=== PATIENT | female | born 1955 | race Caucasian/White ===

== ENCOUNTER → 2017-01-03 | Outpatient (CLI) | payer MEDICARE, OTHER ==
--- NOTE | 2017-01-03 12:52 | XR ---
EXAMINATION TYPE: XR chest 2V DATE OF EXAM: 01/03/2017 HISTORY: J18.9 Pneumonia. REFERENCE: Previous study dated 04/03/2013. FINDINGS: Lungs are mildly overinflated. There is some increased density in the region of the left CP angle. This may represent some atelectasis or early infiltrate. Lungs are otherwise clear. Pleural s paces appear clear. The heart is not enlarged. IMPRESSION: 1. COPD. 2. ATELECTASIS VERSUS EARLY INFILTRATE, LEFT LUNG BASE.
== END | disposition home or self-care (01) ==
LOC: RADXRMAIN 11:42
PROVIDERS: ATTEND Family Medicine
DX: J44.9 Chronic obstructive pulmonary disease, unspecified (principal)
CPT/HCPCS: 71020

== ENCOUNTER 2019-04-26 11:07 | Day surgery (SDC) | payer MEDICARE, OTHER ==
[2019-04-24 10:12] VITALS: BMI 34.9
[~2019-04-26 11:07] MED LIST: LACTATED RINGERS 1,000 ML IV SCH
[2019-04-26] MEDS ORDERED: LACTATED RINGERS 1,000 ML IV ONE (12:05)
[2019-04-26] MEDS ORDERED: LIDOCAINE 1% 20 ML VIAL (10MG/ML) FOR IV START INTRADERMA ONE (12:05)
[2019-04-26 12:09] VITALS: RESP 16; TEMP 98.5
[2019-04-26] MEDS ORDERED: PROPOFOL 10 MG/ML 20 ML VIAL IV ONE (13:20)
--- NOTE | 2019-04-26 13:40 | P.PCN ---
Date of Procedure: 04/26/19 Procedure(s) Performed: BRIEF HISTORY: Patient is a 63-year-old pleasant white female scheduled for an elective colonoscopy as a part of evaluation of prior history of colon polyps. Her last coloscopy was 5 years ago. PROCEDURE PERFORMED: Colonoscopy with snare polypectomy. PREOPERATIVE DIAGNOSIS: History Of colon polyps. IV sedation per Anesthesia. PROCEDURE: After informed consent was obtained, the patient, was brought into the endoscopy unit. IV sedation was administered by Anesthesia under continuous monitoring. Digital rectal examination was normal. Initially the Olympus CF-160 flexible video colonoscope was then inserted in the rectum, and the scope could not be advanced beyond the sigmoid colon because of acute angulation. The scope was removed and a pediatric colonoscope was then introduced into the rectum gradually advanced into the cecum without any difficulty. Careful examination was performed as the scope was gradually being withdrawn. Ileocecal valve and the appendiceal orifice were visualized and appeared normal. Prep was excellent. Mucosa of the cecum, ascending colon, transverse colon, descending colon, sigmoid colon, appeared normal. In the rectosigmoid colon there was a 2 cm pedunculated polyp removed by snare polypectomy. Rectum appeared normal. Retroflexion was performed in the rectum and no lesions were seen. The patient tolerated the procedure well. IMPRESSION: 2 cm pedunculated rectosigmoid polyp status post polypectomy Rest of the colon appeared normal RECOMMENDATIONS: Findings of this examination were discussed with the patient as well as a family. She was advised to follow with the biopsy results. If the biopsy shows an adenoma she can have a repeat colonoscopy in 3 years.
[2019-04-26 14:09] VITALS: BP 114/78; PULSE 78
== END 2019-04-26 14:38 | disposition home or self-care (01) ==
LOC: ORWHC2ENDO 11:07
PROVIDERS: ATTEND Internal Medicine Gastroenterology
DX: Z12.11 Encounter for screening for malignant neoplasm of colon (principal); D12.7 Benign neoplasm of rectosigmoid junction; Z86.010 Personal history of colon polyps; I10 Essential (primary) hypertension; E78.5 Hyperlipidemia, unspecified; G25.81 Restless legs syndrome; H91.91 Unspecified hearing loss, right ear; F41.9 Anxiety disorder, unspecified; F32.9 Major depressive disorder, single episode, unspecified; K21.9 Gastro-esophageal reflux disease without esophagitis; K58.9 Irritable bowel syndrome, unspecified; F17.200 Nicotine dependence, unspecified, uncomplicated; E66.9 Obesity, unspecified; Z68.35 Body mass index [BMI] 35.0-35.9, adult; Z79.899 Other long term (current) drug therapy; Z88.1 Allergy status to other antibiotic agents; Z97.2 Presence of dental prosthetic device (complete) (partial); Z98.51 Tubal ligation status
CPT/HCPCS: 88305; 45385; J2704

== ENCOUNTER → 2021-09-22 | Outpatient (CLI) | payer MEDICARE, OTHER ==
--- NOTE | 2021-09-22 12:30 | CTL ---
EXAMINATION TYPE: CT Low Dose Lung DATE OF EXAM ORDERED: 09/22/2021 HISTORY: . Lung cancer screening CT DLP: [address] CTDI: 2.33 mGy Automated exposure control for dose reduction was used. SCREENING VISIT: COMPARISON: 04/04/2013 TECHNIQUE: Low dose computed tomography scan was performed through the chest at 1 mm thick sections a nd reconstructed images in multiple planes at 1 mm and [address] DIAGNOSTIC QUALITY: Satisfactory FINDINGS: Diffuse emphysematous changes. Areas of subsegmental consolidation most typical of atelecta sis. No focal pneumonia or pleural effusion. No pneumothorax. Heart size is normal. There is coronary artery calcification. Atherosclerotic change of the aorta is demonstrates a maximal dimension of 3.6 cm. No sizable pericardial effusion. Structures of the upper abdomen limited. Hypertrophic changes of the spine with degenerative disc disease. 2 mm nodule image 35 series 3 anterior segment right upper lobe. Within the superior segment right lo wer lobe axial image 43 there is a 3 mm nodule. IMPRESSION: 1. COPD with sub-5 mm nodules too small to characterize, but likely benign 2. Coronary artery calcification CT LUNG RAD AND CT CHEST RECOMMENDATION: Lung-Rad 2 Benign Appearance or Behavior: Continue annual sc reening with LDCT in 12 months.
== END | disposition home or self-care (01) ==
LOC: RADCTMAIN 09:42
PROVIDERS: ATTEND Family Medicine
DX: Z12.2 Encounter for screening for malignant neoplasm of respiratory organs (principal); J44.9 Chronic obstructive pulmonary disease, unspecified; R91.8 Other nonspecific abnormal finding of lung field; I25.10 Atherosclerotic heart disease of native coronary artery without angina pectoris; Z87.891 Personal history of nicotine dependence
CPT/HCPCS: 71271

== ENCOUNTER → 2021-09-22 | Outpatient (CLI) | payer MEDICARE, OTHER ==
--- NOTE | 2021-09-24 13:48 | MM ---
Reason for exam: screening (asymptomatic). Last mammogram was performed 5 years and 10 months ago. History: Patient is postmenopausal. Family history of breast cancer in aunt. Benign US biopsy breast VAD LT of the left breast, November 27, 2015. Benign right mammotome panel of the right breast, February 12, 2013. Physical Findings: A clinical breast exam by your physician is recommended on an annual basis and results should be correlated with mammographic findings. MG 3D Screening Mammo W/Cad Bilateral CC, MLO, and XCCL view(s) were taken. Prior study comparison: November 27, 2015, left breast MG diagnostic mammo LT wo CAD. November 10, 2015, bilateral MG 3d diag mammo w/cad SHAUN. The breast tissue is heterogeneously dense. This may lower the sensitivity of mammography. Previous mammotome biopsy in the right and left breast. Benign regional and diffuse punctate calcifications bilaterally. No significant changes when compared with prior studies. ASSESSMENT: Benign, BI-RAD 2 RECOMMENDATION: Routine screening mammogram of both breasts in 1 year. Patient should continue monthly self breast exams. A negative report should not preclude additional follow up of suspicious palpable abnormalities.
== END | disposition home or self-care (01) ==
LOC: RADMAMWWP 09:16
PROVIDERS: ATTEND Family Medicine
DX: Z12.31 Encounter for screening mammogram for malignant neoplasm of breast (principal); Z80.3 Family history of malignant neoplasm of breast; Z78.0 Asymptomatic menopausal state
CPT/HCPCS: 77063; 77067

== ENCOUNTER → 2022-06-01 | Outpatient (CLI) | payer MEDICARE, OTHER ==
--- NOTE | 2022-06-01 13:46 | MM ---
Reason for Exam: Clinical finding. Last screening mammogram was performed 9 month(s) ago. Indicated Problems: Lump or thickening of the right side for 1 Month(s). Patient History: Menarche at age 14. First Full-Term at age 26. Postmenopausal. 11/27/2015, Benign Core Biopsy on the left side. 02/12/2013, Benign Core Biopsy on the right side. Maternal aunt had breast cancer. Risk Values: Ileana 5 year model risk: 2.8%. NCI Lifetime model risk: 10.3%. Prior Study Comparison: 10/03/2013 Bilateral Screening Mammogram, [facility]. 11/25/2014 Bilateral Diagnostic Mammogram, [facility]. 11/10/2015 Bilateral Diagnostic Mammogram, [facility]. 11/27/2015 Left Diagnostic Mammogram, [facility]. 09/22/2021 Bilateral Screening Mammogram, [facility]. Tissue Density: The breast tissue is heterogeneously dense. This may lower the sensitivity of mammography. Findings: Analyzed By CAD. Persistent and stable distortion subareolar region of right breast. There are biopsy clips in both breasts redemonstrated. This are scattered and loosely grouped tiny round calcifications bilaterally redemonstrated. No suspicious new mass or worrisome group of microcalcifications in either breast. Overall Assessment: Incomplete: need additional imaging evaluation, BI-RAD 0 Management: Diagnostic Breast Ultrasound of the right breast. Targeted ultrasound right breast, new palpable abnormality on background dense tissue. Results were given to the patient verbally at the time of exam. Electronically signed and approved by: Noel Figueroa M.D.
--- NOTE | 2022-06-01 14:14 | USB ---
Reason for Exam: Clinical finding. Patient History: Menarche at age 14. First Full-Term at age 26. Postmenopausal. 11/27/2015, Benign Core Biopsy on the left side. 02/12/2013, Benign Core Biopsy on the right side. Maternal aunt had breast cancer. Risk Values: Ileana 5 year model risk: 2.8%. NCI Lifetime model risk: 10.3%. Technique: Method: Targeted. Prior Study Comparison: 11/10/2015 Bilateral Diagnostic Mammogram, [facility]. 11/27/2015 Left Diagnostic Mammogram, [facility]. 09/22/2021 Bilateral Screening Mammogram, [facility]. Findings: The area of palpable concern of the right breast, the axilla of the right breast and the retroareolar of the right breast were scanned. And targeted ultrasound shows 3 x 5 mm simple appearing thin-walled cyst 3:00 position. Subareolar region shows heterogeneous tissue with prominent ducts. No definitive mass. Overall Assessment: Probably benign, BI-RAD 3 Management: Diagnostic Breast Ultrasound of the right breast. PreCautionary Diagnostic right breast ultrasound follow-up in 3-6 months time. Results were given to the patient verbally at the time of exam. Electronically signed and approved by: Noel Figueroa M.D.
== END | disposition home or self-care (01) ==
LOC: RADMAMWWP 13:00
PROVIDERS: ATTEND Family Medicine
DX: N63.10 Unspecified lump in the right breast, unspecified quadrant (principal); Z78.0 Asymptomatic menopausal state; Z80.3 Family history of malignant neoplasm of breast
CPT/HCPCS: 77066; 76642; G0279; 77062

== ENCOUNTER → 2022-07-15 | Outpatient (CLI) | payer MEDICARE, OTHER ==
[2022-07-15 15:18] VITALS: BP 114/71; PULSE 79; RESP 17; TEMP 98.9
--- NOTE | 2022-07-15 15:39 | P.GSHP ---
History of Present Illness H&P Date: 07/15/22 Chief Complaint: abnormal right breast ultrasound Yin is a 66 year old white female seen in consultation for Dr. Brooks regarding an abnormal right breast ultrasound. She had a bilateral mammogram on 06-01-22 after which a right breast ultrasound was done. This showed a small cyst and repeat in 6 months recommended. The patient feels a nodule in her right breast near her nipple for the past two months. It has not changed in size. She is not complaining of any nipple discharge or skin changes. The mammogram was done secondary to the fact that the patient could feel a change in her breast. She has had a left breast needle biopsy in the past which was benign. This was several years ago. Is not complaining of any recent trauma or infection in the breast. Caffeine: 1 cup coffee/day nicotine: 1PPD/ 50 years chocolate: rare BCP: from 16 until 21 Family History: paternal aunt: of breast cnacer maternal aunt: of breast cancer Hormonal History: meanrche: 14 , breast fed: yes, age at first : 24 menopause: 55 Surgical History: tubaligation Medical History: none Social History: nicotone:1 pack per day for 50 years Alcohol:none drugs: none - Constitutional Constitutional: Reports sweats - EENT Eyes: denies blurred vision, denies pain Ears: deny: decreased hearing, tinnitus Ears, nose, mouth and throat: Denies headache, Denies sore throat - Breasts Breasts: bilateral: as per HPI - Cardiovascular Cardiovascular: Denies chest pain, Denies shortness of breath - Respiratory Respiratory: Denies cough, Denies 7 - Gastrointestinal Comment: IBS Gastrointestinal: Denies abdominal pain, Denies diarrhea, Denies nausea, Denies vomiting - Genitourinary (Female) Genitourinary: Denies dysuria, Denies hematuria - Menstruation Menstruation: Reports postmenopausal - Musculoskeletal Musculoskeletal: Denies myalgias - Integumentary Integumentary: Denies pruritus, Denies rash - Neurological Neurological: Reports numbness - Psychiatric Psychiatric: Reports anxiety, Reports depression - Endocrine Endocrine: Denies fatigue, Denies weight change - Hematologic/Lymphatic Comment: none - Allergic/Immunologic Allergic/Immunologic: Reports as per HPI Past Medical History Past Medical History: Eye Disorder, GERD/Reflux, Hyperlipidemia, Hypertension Additional Past Medical History / Comment(s): RLS. IBS. BILAT CATARACTS BEGINNING. 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 History of Any Multi-Drug Resistant Organisms: None Reported Past Surgical History: Tubal Ligation Additional Past Surgical History / Comment(s): COLONOSCOPIES Past Anesthesia/Blood Transfusion Reactions: No Reported Reaction Past Psychological History: Anxiety, Depression Smoking Status: Current every day smoker Past Alcohol Use History: None Reported Additional Past Alcohol Use History / Comment(s): SMOKES 1/2 PPD SINCE AGE 17 Past Drug Use History: None Reported - Past Family History Mother Family Medical History: No Reported History Medications and Allergies Home Medications Medication Instructions Recorded Confirmed Type Biotin 20,000 mcg PO DAILY 04/24/19 07/15/22 History Citalopram Hydrobromide 40 mg PO DAILY 04/24/19 07/15/22 History [Citalopram HBr] Gabapentin [Neurontin] 300 mg PO TID 04/24/19 07/15/22 History Magnesium Oxide [Mag-Ox] 400 mg PO DAILY 04/24/19 07/15/22 History Melatonin 10 mg PO HS 04/24/19 07/15/22 History Omeprazole 20 mg PO DAILY 04/24/19 07/15/22 History QUEtiapine FUMARATE [SEROquel XR] 150 mg PO DAILY 04/24/19 07/15/22 History Simvastatin [Zocor] 10 mg PO HS 04/24/19 07/15/22 History busPIRone HCL [Buspar] 7.5 mg PO BID 04/24/19 07/15/22 History hydroCHLOROthiazide 25 mg PO DAILY 04/24/19 07/15/22 History rOPINIRole HCL [Requip] 1 mg PO HS 04/24/19 07/15/22 History traZODone HCL 150 mg PO HS 04/24/19 07/15/22 History Allergies Allergy/AdvReac Type Severity Reaction Status Date / Time levofloxacin [From Levaquin] Allergy AGITATED, Verified 07/15/22 15:09 SKIN CRAWLING, COLD SWEATS Surgical - Exam Vital Signs Temp Pulse Resp BP Pulse Ox 98.9 F 79 17 114/71 98 07/15/22 15:15 07/15/22 15:15 07/15/22 15:15 07/15/22 15:15 12/16/22 15:15 - General no distress - Eyes normal ocular movement - ENT no hearing loss - Neck trachea midline - Respiratory normal respiratory effort - Cardiovascular Rhythm: regular Heart Sounds: normal: S1, S2 - Abdomen Abdomen: soft, non tender, no guarding, no rigid, no rebound - Integumentary normal turgor - Neurologic no disoriented, no combative - Musculoskeletal normal gait - Psychiatric oriented to time, oriented to person, oriented to place, speech is normal, memory intact Breast exam: BRA: 40C inspection: Bilateral grade 2 ptosis Palpation: Right breast: Multi-positional exam fibrocystic changes, particularly attention to the area of concern to the patient appears to be dense fibroglandular tissue Right axilla: No adenopathy of concern Left breast: Multi-positional exam fibrocystic changes, no discrete dominant masses or nodules of concern Left axilla: No adenopathy of concern Results Mammogram and ultrasound results personally reviewed Assessment and Plan Assessment: Impression: Fibrocystic breast changes Bilateral mammogram and ultrasound performed on , the ultrasound was of the right breast benign BIRAD 3 Risk evaluation 2.8% 5 years; we have discussed chemoprevention at this time she has declined Plan: Close surveillance of the area of the right breast, at this time there is nothing which would warn interventional biopsy Patient will have a repeat right breast ultrasound in 6 months with physician exam at that time Patient will return sooner if any questions or concerns CC: Dr. Brooks
== END ==
LOC: WWCWWP 14:45
PROVIDERS: ATTEND Surgery
DX: N60.11 Diffuse cystic mastopathy of right breast (principal); N60.12 Diffuse cystic mastopathy of left breast; Z80.3 Family history of malignant neoplasm of breast; K21.9 Gastro-esophageal reflux disease without esophagitis; E78.5 Hyperlipidemia, unspecified; I10 Essential (primary) hypertension; F17.200 Nicotine dependence, unspecified, uncomplicated; Z88.8 Allergy status to other drugs, medicaments and biological substances

== ENCOUNTER → 2023-05-22 | Outpatient (CLI) | payer MEDICARE, OTHER ==
--- NOTE | 2023-05-22 21:57 | US ---
EXAMINATION TYPE: US venous doppler duplex LE LT DATE OF EXAM: 05/22/2023 4:33 PM COMPARISON: NONE CLINICAL INDICATION: Female, 67 years old with history of LLE R60.0 LOCALIZED EDEMA; No hx of DVT. Pa tient does not take blood thinners. Edema x 1.5 months. SIDE PERFORMED: Left TECHNIQUE: The lower extremity deep venous system is examined utilizing real time linear array sonog aurelio with graded compression, doppler sonography and color-flow sonography. VESSELS IMAGED: Common Femoral Vein Deep Femoral Vein Greater Saphenous Vein * Femoral Vein Popliteal Vein Small Saphenous Vein * Proximal Calf Veins (* superficial vessels) Left Leg: No evidence of DVT. Hypoechoic area with hyperechoic center seen within the left groin: 3.1 x 2.3 x 1.1 cm. Findings c ompatible with lymph node. IMPRESSION: No evidence for deep vein thrombosis.
== END | disposition home or self-care (01) ==
LOC: RADUSWWP 16:05
PROVIDERS: ATTEND Family Medicine
DX: R60.0 Localized edema (principal)

== ENCOUNTER 2023-06-21 11:12 | Day surgery (SDC) | payer MEDICARE, OTHER ==
[2023-06-19 15:21] VITALS: BMI 33.3
[~2023-06-21 11:12] MED LIST changes: +LIDOCAINE 1% (10MG/ML) FOR IV START INTRADERMA PRN
[2023-06-21 12:15] VITALS: TEMP 97
[2023-06-21] MEDS ORDERED: LIDOCAINE 1% INJ 10MG/ML (20 ML MDV) ONE (13:02)
[2023-06-21] MEDS ORDERED: PROPOFOL 10 MG/ML 20 ML VIAL IV ONE (13:02)
--- NOTE | 2023-06-21 13:25 | P.PCN ---
Date of Procedure: 06/21/23 Procedure(s) Performed: BRIEF HISTORY: Patient is a 67-year-old pleasant white female scheduled for an elective colonoscopy as a part of evaluation of prior history of colon polyps. Last colonoscopy was poor years ago. PROCEDURE PERFORMED: Colonoscopy. PREOPERATIVE DIAGNOSIS: History of colon polyps. IV sedation per Anesthesia. 67 PROCEDURE: After informed consent was obtained, the patient, was brought into the endoscopy unit. IV sedation was administered by Anesthesia under continuous monitoring. Digital rectal examination was normal. Initially the Olympus CF-160 flexible pediatric video colonoscope was then inserted in the rectum, gradually advanced into the cecum without any difficulty. Careful examination was performed as the scope was gradually being withdrawn. Ileocecal valve and the appendiceal orifice were visualized and appeared normal. Prep was fair.. Mucosa of the cecum, ascending colon, transverse colon, descending colon, sigmoid colon, and rectum appeared normal. Scattered sigmoidal diverticulosis. Retroflexion was performed in the rectum and no lesions were seen. The patient tolerated the procedure well. IMPRESSION: Normal-appearing colon from rectum to cecum with no evidence of colorectal neoplasia Scattered sigmoid diverticulosis . RECOMMENDATIONS: Findings of this examination were discussed with the patient as well as her family. She was advised to have a repeat screening colonoscopy in 10 years..
[2023-06-21 14:16] VITALS: BP 151/66; PULSE 66; RESP 20
== END 2023-06-21 14:10 | disposition home or self-care (01) ==
LOC: ORWHC2ENDO 11:12
PROVIDERS: ATTEND Internal Medicine Gastroenterology
DX: Z12.11 Encounter for screening for malignant neoplasm of colon (principal); K57.30 Diverticulosis of large intestine without perforation or abscess without bleeding; I10 Essential (primary) hypertension; E78.5 Hyperlipidemia, unspecified; J44.9 Chronic obstructive pulmonary disease, unspecified; K21.9 Gastro-esophageal reflux disease without esophagitis; Z79.899 Other long term (current) drug therapy; Z98.890 Other specified postprocedural states; Z86.010 Personal history of colon polyps
CPT/HCPCS: G0105; J2001; J2704; 45378

== ENCOUNTER → 2023-10-09 | Outpatient (CLI) | payer MEDICARE, OTHER ==
[2023-10-09 18:52] LABS: Basophils # (A) 0.09 X 10*3/uL (0.00-0.10); Basophils % (A) 1.1 %; Eosinophils # (A) 0.52 X 10*3/uL (0.04-0.35); Eosinophils % (A) 6.1 %; HCT 45.9 % (37.2-46.3); Lymphocytes # (A) 2.15 X 10*3/uL (0.90-5.00); Lymphocytes % (A) 25.1 %; MCH 29.8 pg (27.0-32.0); MCHC 32.7 g/dL (32.0-37.0); MCV 91.3 FL (80.0-97.0); Mean Platelet Volume 10.3 FL (9.5-12.2); Monocytes # (A) 0.58 X 10*3/uL (0.20-1.00); Monocytes % (A) 6.8 %; NRBC Per 100 WBC 0 X 10*3/uL (0.00-0.01); Neutrophils # (A) 5.17 X 10*3/uL (1.80-7.70); Neutrophils % (A) 60.2 %; Platelet Count 234 X 10*3/uL (140-440); RBC 5.03 X 10*6/uL (4.10-5.20); RDW 13.2 % (11.5-14.5); WBC 8.57 X 10*3/uL (4.50-10.00)
[2023-10-09 19:41] LABS: ALT 57 U/L (8-44); AST 64 U/L (13-35); Albumin 4.4 g/dL (3.8-4.9); Albumin/Globulin Ratio 1.69 Ratio (1.60-3.17); Alkaline Phosphatase 91 U/L (41-126); BUN/Creat Ratio 6.44 Ratio (12.00-20.00); Blood Urea Nitrogen 5.8 mg/dL (9.0-27.0); Chloride 104 mmol/L (96-109); Ferritin 89.8 ng/mL (10.0-291.0); Globulin 2.6 g/dL (1.6-3.3); Glucose 126 mg/dL (70-110); Potassium 3.6 mmol/L (3.5-5.5); Sodium 143 mmol/L (135-145); T4, Free (Free Thyroxine) 0.77 ng/dL (0.80-1.80); Total Bilirubin 0.6 mg/dL (0.3-1.2)
== END | disposition home or self-care (01) ==
LOC: LABWHC1 14:26
PROVIDERS: ATTEND Family Medicine
DX: R53.81 Other malaise (principal)
CPT/HCPCS: 36415; 80053; 82306; 82607; 82728; 84439; 84443; 85025

== ENCOUNTER 2024-03-29 15:35 | Inpatient (IN) | payer MEDICARE, OTHER ==
--- NOTE | 2024-03-29 16:28 | ED ---
Extremity Problem HPI - General Chief complaint: Extremity Problem,Nontraumatic Stated complaint: L leg swelling/redness Time Seen by Provider: 03/29/24 15:51 Source: patient, family, RN notes reviewed Mode of arrival: ambulatory Limitations: no limitations - History of Present Illness Initial comments: 68-year-old female presents the emergency department accompanied by her daughter chief complaint of left lower extremity edema, erythema and pain. Patient states over the past 2-month her left lower extremity has been increasingly edematous. Over the past 2 weeks there has been erythema spreading proximally to the knee. Additionally, over the past 3 days there has been weeping and crusting over the extremity as well. Patient denies overt pain however there is pain with palpation of the leg. Denies recent prolonged travel, surgeries, shortness of breath, difficulty breathing, heart palpitations, dizziness or lightheadedness. Patient denies history of DVT, PE. Denies history of diabetes. Has not been on antibiotics recently - Related Data Home Medications Medication Instructions Recorded Confirmed Omeprazole 20 mg PO DAILY 04/24/19 03/29/24 traZODone HCL 150 mg PO HS 04/24/19 03/29/24 Desvenlafaxine Succinate [Pristiq] 100 mg PO DAILY 06/19/23 03/29/24 ARIPiprazole [Abilify] 15 mg PO DAILY 03/29/24 03/29/24 Albuterol Sulfate [Albuterol 2 puff PO RT-Q4H PRN 03/29/24 03/29/24 Sulfate Hfa] Alendronate Sodium [Fosamax] 70 mg PO FR 03/29/24 03/29/24 Cholecalciferol (Vitamin D3) 50 mcg PO DAILY 03/29/24 03/29/24 [Vitamin D3 (50 Mcg = 2000 Iu)] Cyclobenzaprine [Flexeril] 10 mg PO BID PRN 03/29/24 03/29/24 Gabapentin [Neurontin] 800 mg PO TID 03/29/24 03/29/24 Levothyroxine Sodium [Synthroid] 25 mcg PO DAILY 03/29/24 03/29/24 Melatonin 3 mg PO HS 03/29/24 03/29/24 Multivit-Min/Iron/Folic/Lutein 1 tab PO DAILY 03/29/24 03/29/24 [Centrum Silver Women Tablet] QUEtiapine FUMARATE [SEROquel] 300 mg PO HS 03/29/24 03/29/24 Simvastatin [Zocor] 20 mg PO HS 03/29/24 03/29/24 rOPINIRole HCL [Requip] 2 mg PO HS 03/29/24 03/29/24 Allergies Allergy/AdvReac Type Severity Reaction Status Date / Time levofloxacin [From Levaquin] Allergy AGITATED, Verified 03/29/24 17:21 SKIN CRAWLING, COLD SWEATS Review of Systems ROS Statement: Those systems with pertinent positive or pertinent negative responses have been documented in the HPI. ROS Other: All systems not noted in ROS Statement are negative. Past Medical History Past Medical History: Eye Disorder, GERD/Reflux, Hyperlipidemia, Hypertension Additional Past Medical History / Comment(s): RLS. IBS. BILAT CATARACTS B EGINNING. 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 History of Any Multi-Drug Resistant Organisms: None Reported Past Surgical History: Tubal Ligation Additional Past Surgical History / Comment(s): COLONOSCOPIES Past Anesthesia/Blood Transfusion Reactions: No Reported Reaction Past Psychological History: Anxiety, Depression Smoking Status: Current every day smoker Past Alcohol Use History: None Reported Past Drug Use History: None Reported - Past Family History Mother Family Medical History: No Reported History General Exam Limitations: no limitations General appearance: alert, in no apparent distress Head exam: Present: atraumatic, normocephalic, normal inspection Eye exam: Present: normal appearance, PERRL, EOMI. Absent: scleral icterus, conjunctival injection, periorbital swelling ENT exam: Present: normal exam, mucous membranes moist Neck exam: Present: normal inspection. Absent: tenderness, meningismus, lymphadenopathy Respiratory exam: Present: normal lung sounds bilaterally, wheezes (diffuse). Absent: respiratory distress, rales, rhonchi, stridor Cardiovascular Exam: Present: regular rate, normal rhythm, normal heart sounds. Absent: systolic murmur, diastolic murmur, rubs, gallop, clicks GI/Abdominal exam: Present: soft, normal bowel sounds. Absent: distended, tenderness, guarding, rebound, rigid Left Lower Leg exam: Present: tenderness, swelling, erythema (2+ pitting edema, weeping) Foot/Toe exam: Present: tenderness, swelling, erythema Neurological exam: Present: alert, oriented X3, CN II-XII intact Skin exam: Present: warm, dry, intact, normal color. Absent: rash Course Vital Signs 03/29/24 03/29/24 03/29/24 15:50 17:09 18:41 Temperature 99.3 F 99.3 F 98.5 F Pulse Rate 92 81 78 Respiratory 18 14 12 Rate Blood Pressure 132/75 127/75 132/79 O2 Sat by Pulse 93 L 91 L 93 L Oximetry Medical Decision Making - Medical Decision Making Was pt. sent in by a medical professional or institution (, [facility], [employer], urgent care, hospital, or fdc...) When possible be specific @ -No Did you speak to anyone other than the patient for history (EMS, parent, family, police, friend...)? What history was obtained from this source @ -With the patient's daughter at bedside states the patient has been having worsening erythema and edema of the left extremity over the past 2 weeks and there has been weeping over the past few days and crusting as well. Did you review nursing and triage notes (agree or disagree)? Why? @ -I reviewed and agree with nursing and triage notes Were old charts reviewed (outside hosp., previous admission, EMS record, old EKG, old radiological studies, urgent care reports/EKG's, fdc records)? Report findings @ -No old charts were reviewed Differential Diagnosis (chest pain, altered mental status, abdominal pain women, abdominal pain men, vaginal bleeding, weakness, fever, dyspnea, syncope, headache, dizziness, GI bleed, back pain, seizure, CVA, palpatations, mental health, musculoskeletal)? @ -Cellulitis, venous insufficiency, DVT, peripheral arterial disease, this list is not all inclusive EKG interpreted by me (3pts min.). @ -None X-rays interpreted by me (1pt min.). @ -None done CT interpreted by me (1pt min.). @ -None done U/S interpreted by me (1pt. min.). @ -Duplex ultrasound of the left lower extremity negative for DVT. What testing was considered but not performed or refused? (CT, X-rays, U/S, labs)? Why? @ -None What meds were considered but not given or refused? Why? @ -None Did you discuss the management of the patient with other professionals (professionals i.e. , [employer], [employer], lab, RT, psych nurse, perinatal social worker, audio visual secretary, teacher, credit or loans officer, shoe caser)? Give summary @ -I spoke with nurse practitioner, Echo, with the significant hospitalist team in regard to the patient's presentation. Patient is excepted for admission with IV antibiotics for cellulitis. Was smoking cessation discussed for >3mins.? @ -No Was critical care preformed (if so, how long)? @ -No Were there social determinants of health that impacted care today? How? (Homelessness, low income, unemployed, alcoholism, drug addiction, transportation, low edu. Level, literacy, decrease access to med. care, care home, rehab)? @ -No Was there de-escalation of care discussed even if they declined (Discuss DNR or withdrawal of care, Hospice)? DNR status @ -No What co-morbidities impacted this encounter? (DM, HTN, Smoking, COPD, CAD, Cancer, CVA, ARF, Chemo, Hep., AIDS, mental health diagnosis, sleep apnea, morbid obesity)? @ -None Was patient admitted / discharged? Hospital course, mention meds given and route, prescriptions, significant lab abnormalities, going to OR and other pertinent info. @ -68-year-old female with left lower extremity erythema, edema and pain. On examination patient's left lower extremity is edematous with 2+ pitting edema with erythema spreading proximally to the knee. There is pain to palpation of the left lower extremity however there is no resting pain. Vitals are stable upon arrival. is provided with IV fluids pending results of ultrasound and laboratory results. CBC unremarkable, CMP reveals mildly elevated AST, ALT, elevated CRP at 19.2. Present negative for DVT. Spoke with internal medicine nurse practitioner, patient will be admitted for observation and started on IV antibiotics for her left lower extremity cellulitis. Case discussed with Dr. Adkins Undiagnosed new problem with uncertain prognosis? @ -No Drug Therapy requiring intensive monitoring for toxicity (Heparin, Nitro, Insulin, Cardizem)? @ -No Were any procedures done? @ -No Diagnosis/symptom? @ -Left lower extremity cellulitis Acute, or Chronic, or Acute on Chronic? @ -Acute Uncomplicated (without systemic symptoms) or Complicated (systemic symptoms)? @ -Complicated Side effects of treatment? @ -No Exacerbation, Progression, or Severe Exacerbation? @ -No Poses a threat to life or bodily function? How? (Chest pain, USA, MD, pneumonia, PE, COPD, DKA, ARF, appy, cholecystitis, CVA, Diverticulitis, Homicidal, Suicidal, threat to staff... and all critical care pts) @ -No - Lab Data Result diagrams: 03/29/24 17:24 03/29/24 17:24 Lab Results 03/29/24 03/29/24 03/29/24 Range/Units 17:24 17:24 17:24 WBC 11.2 H (3.8-10.6) k/uL RBC 4.83 (3.80-5.40) m/uL Hgb 14.8 (11.4-16.0) gm/dL Hct 43.5 (34.0-46.0) % MCV 90.2 (80.0-100.0) fL MCH 30.7 (25.0-35.0) pg MCHC 34.0 (31.0-37.0) g/dL RDW 13.7 (11.5-15.5) % Plt Count 189 (150-450) k/uL MPV 7.9 Neutrophils % 77 % Lymphocytes % 15 % Monocytes % 5 % Eosinophils % 1 % Basophils % 0 % Neutrophils # 8.6 H (1.3-7.7) k/uL Lymphocytes # 1.7 (1.0-4.8) k/uL Monocytes # 0.5 (0-1.0) k/uL Eosinophils # 0.1 (0-0.7) k/uL Basophils # 0.1 (0-0.2) k/uL Sodium 139 (137-145) mmol/L Potassium 3.4 L (3.5-5.1) mmol/L Chloride 106 (98-107) mmol/L Carbon Dioxide 25 (22-30) mmol/L Anion Gap 8 mmol/L BUN 14 (7-17) mg/dL Creatinine 0.89 (0.52-1.04) mg/dL Est GFR (CKD-EPI)AfAm 78 (>60 ml/min/1.73 sqM) Est GFR (CKD-EPI)NonAf 67 (>60 ml/min/1.73 sqM) Glucose 82 (74-99) mg/dL Plasma Lactic Acid Kris 1.5 (0.7-2.0) mmol/L Calcium 8.5 (8.4-10.2) mg/dL Magnesium 2.1 (1.6-2.3) mg/dL Total Bilirubin 1.9 H (0.2-1.3) mg/dL AST 77 H (14-36) U/L ALT 44 H (4-34) U/L Alkaline Phosphatase 77 (38-126) U/L C-Reactive Protein 19.2 H (<1.0) mg/dL Total Protein 6.6 (6.3-8.2) g/dL Albumin 3.7 (3.5-5.0) g/dL Disposition Clinical Impression: Cellulitis Disposition: ADMITTED IP TO THIS [facility] Condition: Poor Is patient prescribed a controlled substance at d/c from ED?: No Referrals: Karan Brooks DO [Primary Care Provider] - 1-2 days Decision to Admit Reason: Admit from EC Decision Date: 03/29/24 Decision Time: 19:10
[2024-03-29] MEDS: SODIUM CHLORIDE 0.9% 1,000 ML IV STA (17:32)
[2024-03-29 17:40] LABS: Basophils # (A) 0.1 k/uL (0-0.2); Basophils % (A) 0 %; Eosinophils # (A) 0.1 k/uL (0-0.7); Eosinophils % (A) 1 %; HCT 43.5 % (34.0-46.0); HGB 14.8 gm/dL (11.4-16.0); Lymphocytes # (A) 1.7 k/uL (1.0-4.8); Lymphocytes % (A) 15 %; MCH 30.7 pg (25.0-35.0); MCV 90.2 fL (80.0-100.0); Mean Platelet Volume 7.9; Monocytes # (A) 0.5 k/uL (0-1.0); Monocytes % (A) 5 %; Neutrophils # (A) 8.6 k/uL (1.3-7.7); Neutrophils % (A) 77 %; Platelet Count 189 k/uL (150-450); RBC 4.83 m/uL (3.80-5.40); RDW 13.7 % (11.5-15.5); WBC 11.2 k/uL (3.8-10.6)
[2024-03-29 17:54] LABS: ALT 44 U/L (4-34); AST 77 U/L (14-36); African American GFR (CKD) 78 (>60 ml/min/1.73 sqM); Albumin 3.7 g/dL (3.5-5.0); Alkaline Phosphatase 77 U/L (38-126); Anion Gap 8 mmol/L; Blood Urea Nitrogen 14 mg/dL (7-17); Calcium 8.5 mg/dL (8.4-10.2); Carbon Dioxide 25 mmol/L (22-30); Chloride 106 mmol/L (98-107); Glucose 82 mg/dL (74-99); Magnesium 2.1 mg/dL (1.6-2.3); Non-African American GFR(CKD) 67 (>60 ml/min/1.73 sqM); Potassium 3.4 mmol/L (3.5-5.1); Sodium 139 mmol/L (137-145); Total Bilirubin 1.9 mg/dL (0.2-1.3); Total Protein 6.6 g/dL (6.3-8.2)
[2024-03-29 18:13] LABS: C Reactive Protein 19.2 mg/dL (<1.0)
--- NOTE | 2024-03-29 18:43 | US ---
EXAMINATION TYPE: US venous doppler duplex LE LT DATE OF EXAM: 03/29/2024 6:03 PM COMPARISON: US CLINICAL INDICATION: Female, 68 years old with history of edema, erythema, pain; Redness left leg, no known prior DVT SIDE PERFORMED: Left TECHNIQUE: The lower extremity deep venous system is examined utilizing real time linear array sonog aurelio with graded compression, doppler sonography and color-flow sonography. VESSELS IMAGED: Common Femoral Vein Deep Femoral Vein Greater Saphenous Vein * Femoral Vein Popliteal Vein Small Saphenous Vein * Proximal Calf Veins (* superficial vessels) Left Leg: Negative for DVT IMPRESSION: Grayscale, color doppler, spectral doppler imaging performed of the deep veins of the lo wer extremities. There is normal flow, compressibility, vascular waveforms.
[2024-03-29] MEDS ORDERED: NALOXONE 0.4 MG/ML 1 ML VIAL IV PRN (19:10)
[2024-03-29] MEDS ORDERED: CYCLOBENZAPRINE 10 MG TAB PO PRN (19:32)
[2024-03-29] MEDS: ATORVASTATIN 10 MG TAB PO SCH (20:30)
[2024-03-29] MEDS: traZODone HCL 100 MG TAB PO SCH (20:30)
[2024-03-29] MEDS: SODIUM CHLORIDE 0.9% 1,000 ML IV SCH (20:30)
[2024-03-29] MEDS: MELATONIN 3 MG TABLET PO SCH (20:31)
[2024-03-29] MEDS: QUEtiapine 200 MG TAB PO SCH (20:31)
[2024-03-29] MEDS: GABAPENTIN 400 MG CAP PO SCH (21:56)
[2024-03-29] MEDS: NON FORMULARY DRUG (Alendronate Sodium [Fosamax] 70 MG Tablet) PO SCH (21:57)
[2024-03-29] MEDS: ALBUTEROL HFA INHALER INHALATION PRN (22:04)
[2024-03-30] MEDS: CLINDAMYCIN 600 MG/50 ML-D5W 600 MG in DEXTROSE/WATER 1 50ML.BAG IVPB SCH (00:45)
[2024-03-30] MEDS: PANTOPRAZOLE 40 MG TABLET PO SCH (08:33)
[2024-03-30] MEDS: ARIPiprazole 15 MG TAB PO SCH (08:33)
[2024-03-30] MEDS: LEVOTHYROXINE 25 MCG TAB PO SCH (08:33)
[2024-03-30] MEDS: CHOLECALCIFEROL 25 MCG (1000 IU) TABLET PO SCH (08:33)
[2024-03-30] MEDS: DESVENLAFAXINE SUCCINATE 50 MG TAB.ER.24H PO SCH (08:33)
[2024-03-30] MEDS: MULTIVITAMINS, THERA 1 EACH TAB PO SCH (08:33)
[2024-03-30 09:48] LABS: Basophils # (A) 0.05 X 10*3/uL (0.00-0.10); Basophils % (A) 0.6 %; Eosinophils # (A) 0.18 X 10*3/uL (0.04-0.35); Eosinophils % (A) 2.1 %; HCT 40.6 % (37.2-46.3); Lymphocytes # (A) 1.77 X 10*3/uL (0.90-5.00); Lymphocytes % (A) 20.7 %; MCH 30.7 pg (27.0-32.0); Mean Platelet Volume 10.8 FL (9.5-12.2); Monocytes # (A) 0.67 X 10*3/uL (0.20-1.00); Monocytes % (A) 7.8 %; NRBC Per 100 WBC 0 X 10*3/uL (0.00-0.01); Neutrophils # (A) 5.82 X 10*3/uL (1.80-7.70); Neutrophils % (A) 68.1 %; Platelet Count 171 X 10*3/uL (140-440); RBC 4.23 X 10*6/uL (4.10-5.20); RDW 14.3 % (11.5-14.5); WBC 8.55 X 10*3/uL (4.50-10.00)
[2024-03-30 10:05] LABS: BUN/Creat Ratio 12.27 Ratio (12.00-20.00); Blood Urea Nitrogen 13.5 mg/dL (9.0-27.0); Chloride 108 mmol/L (96-109); Glucose 103 mg/dL (70-110); Potassium 4.2 mmol/L (3.5-5.5); Sodium 144 mmol/L (135-145)
[2024-03-30 10:06] LABS: ALT 37 U/L (8-44); AST 57 U/L (13-35); Albumin 3.5 g/dL (3.8-4.9); Albumin/Globulin Ratio 1.67 Ratio (1.60-3.17); Alkaline Phosphatase 68 U/L (41-126); Calcium 7.8 mg/dL (8.7-10.3); Carbon Dioxide 25.5 mmol/L (21.6-31.8); Globulin 2.1 g/dL (1.6-3.3); Total Protein 5.6 g/dL (6.2-8.2)
--- NOTE | 2024-03-30 17:07 | P.HPIM ---
History of Present Illness H&P Date: 03/30/24 History of present illness: 68-year-old female with past medical history significant for hypertension, hyperlipidemia, GERD who presented to ER with a complaint of left lower extremity pain, swelling and redness. Patient stated that she has chronic swelling in the lower lower extremities, patient started to note status worsening redness, swelling, pain and tenderness in the left lower extremity ab out 1 week ago when patient noticed a blister with weeping. Patient also reported fever and chills at home. Patient also reported altered mental status for 2 days per daughter. In the ED patient was afebrile, heart rate 90, respiratory rate 18, blood pressure 117/73, saturating 94% on 2 L. Labs: WBCs 11.2, now down to 8.55, hemoglobin 13.0, platelets 171. BMP unremarkable. Mildly elevated ALT and AST. Ultrasound venousnormal. REVIEW OF SYSTEMS: CONSTITUTIONAL: No fever, no malaise, no fatigue. HEENT: No recent visual problems or hearing problems. Denied any sore throat. CARDIOVASCULAR: No chest pain, orthopnea, PND, no palpitations, no syncope. PULMONARY: No shortness of breath, no cough, no hemoptysis. GASTROINTESTINAL: No diarrhea, no nausea, no vomiting, no abdominal pain. NEUROLOGICAL: No headaches, no weakness, no numbness. HEMATOLOGICAL: Denies any bleeding or petechiae. GENITOURINARY: Denies any burning micturition, frequency, or urgency. MUSCULOSKELETAL/RHEUMATOLOGICAL: Denies any joint pain, swelling, or any muscle pain. ENDOCRINE: Denies any polyuria or polydipsia. The rest of the 14-point review of systems is negative. PHYSICAL EXAMINATION: GENERAL: The patient is A&O x3, NAD HEENT: EOMI, Sclerae anicteric, Moist Mucous membranes Neck: Supple, Non tender, No JVD PULMONARY: Equal breath souds B/L, No wheezing, No crackles. CARDIOVASCULAR: S1, S2 present. No murmurs, rubs, or gallops. ABDOMEN: Soft, nontender, nondistended, normoactive bowel sounds. No guarding or rebound tenderness. MUSCULOSKELETAL: Bilateral lower extremity edema, worse on the left lower extremity. Left lower extremity, tenderness, edema, warmth. EXTREMITIES: No cyanosis, clubbing, or pedal edema. NEUROLOGICAL: CN 2-12 grossly intact. No FND Assessment and plan: Sepsis: Left lower extremity cellulitis: Presented with worsening lower extremity swelling, edema, redness, pain and tenderness Blood cultures IV fluids Vancomycin and Rocephin Infectious disease consult DVT prophylaxis Subcutaneous Lovenox Monitor vital signs and labs Continue telemetry monitoring Labs and medication were reviewed. Continue same treatment. Resume home medication. Further recommendations as per clinical course of the patient Dictation was produced using [employer] dictation software. please excuse any grammatical, word or spelling errors. Past Medical History Past Medical History: Eye Disorder, GERD/Reflux, Hyperlipidemia, Hypertension Additional Past Medical History / Comment(s): RLS. IBS. BILAT CATARACTS BEGINNING. 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 History of Any Multi-Drug Resistant Organisms: None Reported Past Surgical History: Tubal Ligation Additional Past Surgical History / Comment(s): COLONOSCOPIES Past Anesthesia/Blood Transfusion Reactions: No Reported Reaction Past Psychological History: Anxiety, Depression Smoking Status: Current every day smoker Past Alcohol Use History: None Reported Additional Past Alcohol Use History / Comment(s): SMOKES 1/2 PPD SINCE AGE 17 Past Drug Use History: None Reported - Past Family History Mother Family Medical History: No Reported History Medications and Allergies Home Medications Medication Instructions Recorded Confirmed Type Omeprazole 20 mg PO DAILY 04/24/19 03/29/24 History traZODone HCL 150 mg PO HS 04/24/19 03/29/24 History Desvenlafaxine Succinate [Pristiq] 100 mg PO DAILY 06/19/23 03/29/24 History ARIPiprazole [Abilify] 15 mg PO DAILY 03/29/24 03/29/24 History Albuterol Sulfate [Albuterol 2 puff PO RT-Q4H PRN 03/29/24 03/29/24 History Sulfate Hfa] Alendronate Sodium [Fosamax] 70 mg PO FR 03/29/24 03/29/24 History Cholecalciferol (Vitamin D3) 50 mcg PO DAILY 03/29/24 03/29/24 History [Vitamin D3 (50 Mcg = 2000 Iu)] Cyclobenzaprine [Flexeril] 10 mg PO BID PRN 03/29/24 03/29/24 History Gabapentin [Neurontin] 800 mg PO TID 03/29/24 03/29/24 History Levothyroxine Sodium [Synthroid] 25 mcg PO DAILY 03/29/24 03/29/24 History Melatonin 3 mg PO HS 03/29/24 03/29/24 History Multivit-Min/Iron/Folic/Lutein 1 tab PO DAILY 03/29/24 03/29/24 History [Centrum Silver Women Tablet] QUEtiapine FUMARATE [SEROquel] 300 mg PO HS 03/29/24 03/29/24 History Simvastatin [Zocor] 20 mg PO HS 03/29/24 03/29/24 History rOPINIRole HCL [Requip] 2 mg PO HS 03/29/24 03/29/24 History Allergies Allergy/AdvReac Type Severity Reaction Status Date / Time levofloxacin [From Levaquin] Allergy AGITATED, Verified 03/29/24 17:21 SKIN CRAWLING, COLD SWEATS Physical Exam Vitals: Vital Signs Temp Pulse Pulse Resp BP BP Pulse Ox 03/30/24 14:53 99.0 F 91 18 125/73 94 L 03/30/24 07:00 98.1 F 85 17 144/63 91 L 03/30/24 02:05 98.2 F 90 18 117/73 93 L 03/30/24 02:00 90 03/29/24 21:56 106 H 03/29/24 21:51 98.8 F 106 H 20 123/75 93 L 03/29/24 20:48 97.1 F L 81 18 138/64 90 L 03/29/24 18:41 98.5 F 78 12 132/79 93 L 03/29/24 17:09 99.3 F 81 14 127/75 91 L Intake and Output 03/30/24 03/30/24 03/30/24 06:59 14:59 22:59 Intake Total 600 Balance 600 Intake: Intake, IV Titration 600 Amount Sodium Chloride 0.9% 1, 600 000 ml @ 75 mls/hr IV . [id number] [facility] Rx#:[id number] Other: # Voids 1 Results CBC & Chem 7: 03/30/24 04:24 03/30/24 04:24 Labs: Abnormal Lab Results - Last 24 Hours (Table) 03/29/24 03/29/24 03/30/24 Range/Units 17:24 17:24 04:24 WBC 11.2 H (3.8-10.6) k/uL Immature Gran # 0.06 H (0.00-0.04) X 10*3/uL Neutrophils # 8.6 H (1.3-7.7) k/uL Potassium 3.4 L (3.5-5.1) mmol/L Est GFR (CKD-EPI) (>=60) Calcium (8.7-10.3) mg/dL Total Bilirubin 1.9 H (0.2-1.3) mg/dL AST 77 H (14-36) U/L ALT 44 H (4-34) U/L C-Reactive Protein 19.2 H (<1.0) mg/dL Total Protein (6.2-8.2) g/dL Albumin (3.8-4.9) g/dL 03/30/24 Range/Units 04:24 WBC (3.8-10.6) k/uL Immature Gran # (0.00-0.04) X 10*3/uL Neutrophils # (1.3-7.7) k/uL Potassium (3.5-5.1) mmol/L Est GFR (CKD-EPI) 55 L (>=60) Calcium 7.8 L (8.7-10.3) mg/dL Total Bilirubin (0.2-1.3) mg/dL AST 57 H (14-36) U/L ALT (4-34) U/L C-Reactive Protein (<1.0) mg/dL Total Protein 5.6 L (6.2-8.2) g/dL Albumin 3.5 L (3.8-4.9) g/dL Thrombosis Risk Factor Assmnt - Choose All That Apply Any of the Below Risk Factors Present?: Yes Each Factor Represents 1 point: Obesity (BMI >25) Other Risk Factors: Yes Each Risk Factor Represents 2 Points: Age 61-74 years Other congenital or acquired thrombophilia - If yes, enter type in comment: No Thrombosis Risk Factor Assessment Total Risk Factor Score: 3 Thrombosis Risk Factor Assessment Level: Moderate Risk
[2024-03-30] MEDS ORDERED: VANCOMYCIN IV PER PHARMACY 1 EACH MISC MISCELLANE PRN (17:09)
[2024-03-30] MEDS: ENOXAPARIN 40 MG/0.4 ML SYRINGE SQ SCH (17:45)
[2024-03-30] MEDS: VANCOMYCIN 1,750 MG in SODIUM CHLORIDE 0.9% 500 ML 500 ML IVPB SCH (18:24)
[2024-03-31 10:41] LABS: Basophils # (A) 0.05 X 10*3/uL (0.00-0.10); Basophils % (A) 0.7 %; Eosinophils # (A) 0.26 X 10*3/uL (0.04-0.35); Eosinophils % (A) 3.7 %; HCT 38.3 % (37.2-46.3); HGB 12.3 g/dL (12.0-15.0); Lymphocytes # (A) 1.62 X 10*3/uL (0.90-5.00); MCH 30.1 pg (27.0-32.0); MCHC 32.1 g/dL (32.0-37.0); MCV 93.6 FL (80.0-97.0); Mean Platelet Volume 10.4 FL (9.5-12.2); Monocytes # (A) 0.65 X 10*3/uL (0.20-1.00); Monocytes % (A) 9.2 %; NRBC Per 100 WBC 0 X 10*3/uL (0.00-0.01); Neutrophils # (A) 4.38 X 10*3/uL (1.80-7.70); Neutrophils % (A) 62.3 %; Platelet Count 174 X 10*3/uL (140-440); RBC 4.09 X 10*6/uL (4.10-5.20); RDW 14.2 % (11.5-14.5); WBC 7.04 X 10*3/uL (4.50-10.00)
[2024-03-31 11:17] LABS: Blood Urea Nitrogen 8.8 mg/dL (9.0-27.0); Calcium 7.2 mg/dL (8.7-10.3); Carbon Dioxide 22.6 mmol/L (21.6-31.8); Chloride 110 mmol/L (96-109); Glucose 106 mg/dL (70-110); Potassium 3.7 mmol/L (3.5-5.5); Sodium 141 mmol/L (135-145)
[2024-03-31] MEDS: NYSTATIN 100,000UNIT/GM CREAM 30 GM TUBE TOPICAL SCH (14:44)
[2024-03-31] MEDS: ceFAZolin 3 GM in SODIUM CHLORIDE 0.9% 100 ML IVPB SCH (14:50)
--- NOTE | 2024-03-31 15:21 | P.CONS ---
History of Present Illness - Reason for Consult Consult date: 03/31/24 Left lower extremity cellulitis Requesting physician: Phillip De Guzman - Chief Complaint Left leg swelling and redness x few days - History of Present Illness Patient is a 68-year-old female past medical history taken for hypertension hyperlipidemia reflux COPD significant history of smoking and continues to smoke along with anxiety and depression patient has been brought into the ER yesterday concerning for increasing swelling redness to left lower extremity that apparently has been getting worse over the last few days patient has been dealing with increasing swelling to the left leg for the last 2 months and apparently did have a previous Doppler was negative for DVT over the last 3 days before presentation to hospital patient noted to have increasing swelling and redness of the left leg which is diffused patient complaining of pain which is mostly dull aching to sharp mild to moderate intensity without radiation with associated swelling redness leg is warm to touch denies any skin breakdown or any drainage patient denies high-grade fever on presentation to hospital she did have low-grade fever of 99.3 F patient was not tachycardic or hypotensive mildly hypoxic currently on 2 L current oxygen she did have white 11.2 with a left shift creatinine has been normal liver enzymes mildly elevated patient was started on Rocephin and vancomycin infectious disease was consulted for further management of antibiotic therapy Review of Systems Positive point and negatives has been mentioned in the HPI, complete review of systems was performed and all other systems are negative Past Medical History Past Medical History: Eye Disorder, GERD/Reflux, Hyperlipidemia, Hypertension Additional Past Medical History / Comment(s): RLS. IBS. BILAT CATARACTS BEGI NNING. 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 History of Any Multi-Drug Resistant Organisms: None Reported Past Surgical History: Tubal Ligation Additional Past Surgical History / Comment(s): COLONOSCOPIES Past Anesthesia/Blood Transfusion Reactions: No Reported Reaction Past Psychological History: Anxiety, Depression Smoking Status: Current every day smoker Past Alcohol Use History: None Reported Additional Past Alcohol Use History / Comment(s): SMOKES 1/2 PPD SINCE AGE 17 Past Drug Use History: None Reported - Past Family History Mother Family Medical History: No Reported History Medications and Allergies Home Medications Medication Instructions Recorded Confirmed Type Omeprazole 20 mg PO DAILY 04/24/19 03/29/24 History traZODone HCL 150 mg PO HS 04/24/19 03/29/24 History Desvenlafaxine Succinate [Pristiq] 100 mg PO DAILY 06/19/23 03/29/24 History ARIPiprazole [Abilify] 15 mg PO DAILY 03/29/24 03/29/24 History Albuterol Sulfate [Albuterol 2 puff PO RT-Q4H PRN 03/29/24 03/29/24 History Sulfate Hfa] Alendronate Sodium [Fosamax] 70 mg PO FR 03/29/24 03/29/24 History Cholecalciferol (Vitamin D3) 50 mcg PO DAILY 03/29/24 03/29/24 History [Vitamin D3 (50 Mcg = 2000 Iu)] Cyclobenzaprine [Flexeril] 10 mg PO BID PRN 03/29/24 03/29/24 History Gabapentin [Neurontin] 800 mg PO TID 03/29/24 03/29/24 History Levothyroxine Sodium [Synthroid] 25 mcg PO DAILY 03/29/24 03/29/24 History Melatonin 3 mg PO HS 03/29/24 03/29/24 History Multivit-Min/Iron/Folic/Lutein 1 tab PO DAILY 03/29/24 03/29/24 History [Centrum Silver Women Tablet] QUEtiapine FUMARATE [SEROquel] 300 mg PO HS 03/29/24 03/29/24 History Simvastatin [Zocor] 20 mg PO HS 03/29/24 03/29/24 History rOPINIRole HCL [Requip] 2 mg PO HS 03/29/24 03/29/24 History Allergies Allergy/AdvReac Type Severity Reaction Status Date / [facility] Allergy AGITATED, Verified 03/29/24 17:21 SKIN CRAWLING, COLD SWEATS Physical Exam Vitals: Vital Signs Temp Pulse Resp BP Pulse Ox 03/31/24 07:30 98.5 F 79 18 122/74 94 L 03/31/24 02:00 98.4 F 84 18 106/57 95 03/30/24 20:30 83 03/30/24 19:09 99.4 F 83 17 138/81 93 L 03/30/24 14:53 99.0 F 91 18 125/73 94 L Intake and Output 03/30/24 03/31/24 03/31/24 22:59 06:59 14:59 Intake Total 236 Balance 236 Intake: Oral 236 Other: Voiding Method Toilet Toilet # Voids 1 2 GENERAL DESCRIPTION: Elderly female up in bed, no distress. No tachypnea or accessory muscle of respiration use. HEENT: Shows Pallor , no scleral icterus. Oral mucous membrane is dry. No pharyngeal erythema or thrush NECK: Trachea central, no thyromegaly. LUNGS: Unlabored breathing. Clear to auscultation anteriorly. No wheeze or crackle. HEART: S1, S2, regular rate and rhythm. No loud murmur ABDOMEN: Soft, no tenderness , guarding or rigidity, no organomegaly EXTREMITIES: Diffuse swelling and also left lower extremity which is warm to t ouch did have evidence of athlete's foot to the left SKIN: No rash, no masses palpable. NEUROLOGICAL: The patient is awake, alert, oriented x3, mood and affect normal. Results CBC & Chem 7: 03/31/24 03:38 03/31/24 03:38 Labs: Abnormal Lab Results - Last 24 Hours (Table) 03/31/24 03/31/24 Range/Units 03:38 03:38 RBC 4.09 L (4.10-5.20) X 10*6/uL Immature Gran # 0.08 H (0.00-0.04) X 10*3/uL Chloride 110 H (96-109) mmol/L BUN 8.8 L (9.0-27.0) mg/dL BUN/Creatinine Ratio 8.80 L (12.00-20.00) Ratio Calcium 7.2 L (8.7-10.3) mg/dL Microbiology - Last 24 Hours (Table) 03/29/24 17:25 Blood Culture - Preliminary Blood Assessment and Plan (1) Left leg cellulitis Current Visit: Yes Status: Acute Code(s): L03.116 - CELLULITIS OF LEFT LOWER LIMB SNOMED Code(s): 61734794120881368 (2) Athlete's foot on left Current Visit: Yes Status: Acute Code(s): B35.3 - TINEA PEDIS SNOMED Code(s): 5107377 Plan: 1patient presented to hospital with increasing swelling to the left lower extremity that has been getting worse over the last 2 months now with progressive worsening redness concerning for cellulitis likely secondary to gram-positive skin marquita and possibly streptococcal disease. 2patient did have history of COPD and possible cor pulmonale leading to these swelling in the legs as apparently patient recent recently Doppler has been negative. 3Levaquin allergy that will limit the number of antibiotics safe to use. 4we will discontinue Rocephin and vancomycin. 5start patient cefazolin 3 g every 8 hours along with nystatin cream in between the toes and an Vik wrap to the leg to keep the swelling down discussed with the nursing staff and admitting physician We will follow on clinical condition and cultures to further adjust medication if needed Thank you for this consultation we will follow the patient along with you Dictation was produced using [employer] dictation software. please excuse any grammatical, word or spelling errors. Time with Patient: Greater than 30
--- NOTE | 2024-03-31 16:26 | P.PN ---
Subjective Progress Note Date: 03/31/24 Interval History: 68-year-old female with past medical history significant for hypertension, hyperlipidemia, GERD who presented to ER with a complaint of left lower extremity pain, swelling and redness. Patient stated that she has chronic swelling in the lower lower extremities, patient started to note status worsening redness, swelling, pain and tenderness in the left lower extremity about 1 week ago when patient noticed a blister with weeping. Patient also reported fever and chills at home. Patient also reported altered mental status for 2 days per daughter. In the ED patient was afebrile, heart rate 90, respiratory rate 18, blood pressure 117/73, saturating 94% on 2 L. Labs: WBCs 11.2, now down to 8.55, hemoglobin 13.0, platelets 171. BMP unremarkable. Mildly elevated ALT and AST. Ultrasound venousnormal. 03/31--patient was seen and examined today. Lower extremity swelling with tenderness and warmth is improving. Infectious disease following, patient antibiotic switched to cefazolin. Labs unremarkable, normal WBC count. Assessment and plan: Sepsis: Left lower extremity cellulitis: Presented with worsening lower extremity swelling, edema, redness, pain and tenderness Blood cultures IV fluids Vancomycin and Rocephin--- switched to cefazolin per infectious disease. Infectious disease consulted DVT prophylaxis Subcutaneous Lovenox Monitor vital signs and labs Continue telemetry monitoring Labs and medication were reviewed. Continue same treatment. Resume home medication. Further recommendations as per clinical course of the patient PHYSICAL EXAMINATION: GENERAL: The patient is A&O x3, NAD HEENT: EOMI, Sclerae anicteric, Moist Mucous membranes Neck: Supple, Non tender, No JVD PULMONARY: Equal breath souds B/L, No wheezing, No crackles. CARDIOVASCULAR: S1, S2 present. No murmurs, rubs, or gallops. ABDOMEN: Soft, nontender, nondistended, normoactive bowel sounds. No guarding or rebound tenderness. MUSCULOSKELETAL: Bilateral lower extremity edema, worse on the left lower extremity. Left lower extremity, tenderness, edema, warmth. EXTREMITIES: No cyanosis, clubbing, or pedal edema. NEUROLOGICAL: CN 2-12 grossly intact. No FND REVIEW OF SYSTEMS: CONSTITUTIONAL: No fever or chills. CARDIOVASCULAR: No chest pain, palpitations or syncope. PULMONARY: No shortness of breath, no cough, sore throat. GASTROINTESTINAL: No nausea, vomiting, diarrhea, abdominal pain. : No Dysuria, urgency, frequency. Extremities: No edema. NEUROLOGICAL: No headaches, no weakness, or numbness Dictation was produced using [employer] dictation software. please excuse any grammatical, word or spelling errors. Objective - Vital Signs Vital signs: Vital Signs Temp 98.6 F 03/31/24 15:00 Pulse 86 03/31/24 15:00 Resp 18 03/31/24 15:00 BP 161/89 03/31/24 15:00 Pulse Ox 94 L 03/31/24 15:00 FiO2 Intake & Output 03/30/24 03/31/24 03/31/24 18:59 06:59 18:59 Intake Total 600 995 Balance 600 995 Intake: Intake, IV Titration 600 700 Amount Sodium Chloride 0.9% 1, 600 600 000 ml @ 75 mls/hr IV . [id number] [facility] Rx#:[id number] ceFAZolin 3 gm In Sodium 100 Chloride 0.9% 100 ml @ 200 mls/hr IVPB Q8HR [facility] Rx#:[id number] Oral 295 Other: Voiding Method Toilet Toilet # Voids 2 2 - Labs CBC & Chem 7: 03/31/24 03:38 03/31/24 03:38 Labs: Abnormal Lab Results - Last 24 Hours (Table) 03/31/24 03/31/24 Range/Units 03:38 03:38 RBC 4.09 L (4.10-5.20) X 10*6/uL Immature Gran # 0.08 H (0.00-0.04) X 10*3/uL Chloride 110 H (96-109) mmol/L BUN 8.8 L (9.0-27.0) mg/dL BUN/Creatinine Ratio 8.80 L (12.00-20.00) Ratio Calcium 7.2 L (8.7-10.3) mg/dL Microbiology - Last 24 Hours (Table) 03/29/24 17:25 Blood Culture - Preliminary Blood
[2024-03-31] MEDS: LORazepam 0.5 MG TAB PO PRN (18:40)
[2024-03-31] MEDS: ACETAMINOPHEN TAB 325 MG TAB PO PRN (20:32)
[2024-04-01 11:41] LABS: Basophils # (A) 0.06 X 10*3/uL (0.00-0.10); Basophils % (A) 0.7 %; Eosinophils # (A) 0.28 X 10*3/uL (0.04-0.35); Eosinophils % (A) 3.3 %; HCT 40.3 % (37.2-46.3); HGB 12.6 g/dL (12.0-15.0); Lymphocytes # (A) 1.02 X 10*3/uL (0.90-5.00); Lymphocytes % (A) 11.9 %; MCH 30.1 pg (27.0-32.0); MCHC 31.3 g/dL (32.0-37.0); MCV 96.2 FL (80.0-97.0); Mean Platelet Volume 10.2 FL (9.5-12.2); Monocytes # (A) 0.69 X 10*3/uL (0.20-1.00); NRBC Per 100 WBC 0 X 10*3/uL (0.00-0.01); Neutrophils # (A) 6.39 X 10*3/uL (1.80-7.70); Neutrophils % (A) 74.4 %; Platelet Count 178 X 10*3/uL (140-440); RBC 4.19 X 10*6/uL (4.10-5.20); RDW 14.1 % (11.5-14.5); WBC 8.59 X 10*3/uL (4.50-10.00)
[2024-04-01 12:07] LABS: BUN/Creat Ratio 4.22 Ratio (12.00-20.00); Blood Urea Nitrogen 3.8 mg/dL (9.0-27.0); Calcium 7.5 mg/dL (8.7-10.3); Carbon Dioxide 23.1 mmol/L (21.6-31.8); Chloride 109 mmol/L (96-109); Glucose 123 mg/dL (70-110); Potassium 3.7 mmol/L (3.5-5.5); Sodium 141 mmol/L (135-145)
[2024-04-01] MEDS: SYMBICORT 160-4.5 MCG INHALER INHALATION SCH (12:41)
[2024-04-01] MEDS: IPRATROPIUM 0.5 MG/2.5 ML NEBU INHALATION SCH (12:42)
[2024-04-01] MEDS: FUROSEMIDE 10 MG/ML 2 ML VIAL IV ONE (13:02)
--- NOTE | 2024-04-01 17:25 | P.PN ---
Subjective Progress Note Date: 04/01/24 Interval History: 68-year-old female with past medical history significant for hypertension, hyperlipidemia, GERD who presented to ER with a complaint of left lower extremity pain, swelling and redness. Patient stated that she has chronic swelling in the lower lower extremities, patient started to note status worsening redness, swelling, pain and tenderness in the left lower extremity about 1 week ago when patient noticed a blister with weeping. Patient also reported fever and chills at home. Patient also reported altered mental status for 2 days per daughter. In the ED patient was afebrile, heart rate 90, respiratory rate 18, blood pressure 117/73, saturating 94% on 2 L. Labs: WBCs 11.2, now down to 8.55, hemoglobin 13.0, platelets 171. BMP unremarkable. Mildly elevated ALT and AST. Ultrasound venousnormal. 03/31--patient was seen and examined today. Lower extremity swelling with tenderness and warmth is improving. Infectious disease following, patient antibiotic switched to cefazolin. Labs unremarkable, normal WBC count. 04/01--patient was seen and examined today. Lower extremity tenderness warmth is improving. Infectious disease following, currently on cefazolin. Normal WBC s hemoglobin and platelets. Normal sodium, potassium, BUN/creatinine. Assessment and plan: Sepsis: Left lower extremity cellulitis: Edema: Presented with worsening lower extremity swelling, edema, redness, pain and tenderness Blood cultures IV fluids Vancomycin and Rocephin--- switched to cefazolin per infectious disease. Infectious disease consulted Vik se's Echocardiogram Lasix 1 dose. COPD: Patient has history of smoking, using home inhalers Not on home oxygen Requiring 2 L oxygen Resume home inhalers albuterol, Trelegy. Monitor oxygen saturation, may need rest walk prior to discharge. DVT prophylaxis Subcutaneous Lovenox Monitor vital signs and labs Continue telemetry monitoring Labs and medication were reviewed. Continue same treatment. Resume home medication. Further recommendations as per clinical course of the patient PHYSICAL EXAMINATION: GENERAL: The patient is A&O x3, NAD HEENT: EOMI, Sclerae anicteric, Moist Mucous membranes Neck: Supple, Non tender, No JVD PULMONARY: Equal breath souds B/L, No wheezing, No crackles. CARDIOVASCULAR: S1, S2 present. No murmurs, rubs, or gallops. ABDOMEN: Soft, nontender, nondistended, normoactive bowel sounds. No guarding or rebound tenderness. MUSCULOSKELETAL: Bilateral lower extremity edema, worse on the left lower extremity. Left lower extremity, tenderness, edema, warmth. EXTREMITIES: No cyanosis, clubbing, or pedal edema. NEUROLOGICAL: CN 2-12 grossly intact. No FND REVIEW OF SYSTEMS: CONSTITUTIONAL: No fever or chills. CARDIOVASCULAR: No chest pain, palpitations or syncope. PULMONARY: No shortness of breath, no cough, sore throat. GASTROINTESTINAL: No nausea, vomiting, diarrhea, abdominal pain. : No Dysuria, urgency, frequency. Extremities: No edema. NEUROLOGICAL: No headaches, no weakness, or numbness Dictation was produced using [employer] dictation software. please excuse any grammatical, word or spelling errors. Objective - Vital Signs Vital signs: Vital Signs Temp 98 F 04/01/24 15:00 Pulse 84 04/01/24 15:00 Resp 16 04/01/24 15:00 BP 135/66 04/01/24 15:00 Pulse Ox 94 L 04/01/24 15:00 FiO2 Intake & Output 03/31/24 04/01/24 04/01/24 18:59 06:59 18:59 Intake Total 1113 375 236 Output Total 1250 Balance 1113 375 -1014 Intake: Intake, IV Titration 700 375 Amount Sodium Chloride 0.9% 1, 600 375 000 ml @ 75 mls/hr IV . [id number] [facility] Rx#:[id number] ceFAZolin 3 gm In Sodium 100 Chloride 0.9% 100 ml @ 200 mls/hr IVPB Q8HR [facility] Rx#:[id number] Oral 413 236 Output: Urine 1250 Other: Voiding Method Toilet Toilet # Voids 2 2 1 # Bowel Movements 1 - Labs CBC & Chem 7: 04/01/24 06:33 04/01/24 06:33 Labs: Abnormal Lab Results - Last 24 Hours (Table) 04/01/24 04/01/24 Range/Units 06:33 06:33 MCHC 31.3 L (32.0-37.0) g/dL Immature Gran # 0.15 H (0.00-0.04) X 10*3/uL BUN 3.8 L (9.0-27.0) mg/dL BUN/Creatinine Ratio 4.22 L (12.00-20.00) Ratio Glucose 123 H (70-110) mg/dL Calcium 7.5 L (8.7-10.3) mg/dL Microbiology - Last 24 Hours (Table) 03/29/24 17:25 Blood Culture - Preliminary Blood
[2024-04-02 09:05] LABS: HCT 39.2 % (37.2-46.3); HGB 12.7 g/dL (12.0-15.0); MCH 30.1 pg (27.0-32.0); MCHC 32.4 g/dL (32.0-37.0); MCV 92.9 FL (80.0-97.0); Mean Platelet Volume 10.5 FL (9.5-12.2); NRBC Per 100 WBC 0 X 10*3/uL (0.00-0.01); Platelet Count 199 X 10*3/uL (140-440); RBC 4.22 X 10*6/uL (4.10-5.20); WBC 7.45 X 10*3/uL (4.50-10.00)
[2024-04-02 09:45] LABS: Basophils # (A) 0.08 X 10*3/uL (0.00-0.10); Basophils % (A) 1.1 %; Eosinophils # (A) 0.34 X 10*3/uL (0.04-0.35); Eosinophils % (A) 4.6 %; Lymphocytes # (A) 1.62 X 10*3/uL (0.90-5.00); Lymphocytes % (A) 21.7 %; Monocytes # (A) 0.61 X 10*3/uL (0.20-1.00); Monocytes % (A) 8.2 %; Neutrophils # (A) 4.54 X 10*3/uL (1.80-7.70); Neutrophils % (A) 60.9 %; RBC Morphology Normal (Normal)
[2024-04-02 11:51] LABS: BUN/Creat Ratio 6.25 Ratio (12.00-20.00); Calcium 8.3 mg/dL (8.7-10.3); Carbon Dioxide 25.4 mmol/L (21.6-31.8); Chloride 103 mmol/L (96-109); Glucose 109 mg/dL (70-110); Magnesium 1.6 mg/dL (1.5-2.4); Potassium 3.3 mmol/L (3.5-5.5); Sodium 141 mmol/L (135-145)
[2024-04-02] MEDS: FUROSEMIDE 10 MG/ML 2 ML VIAL IV ONE (12:55)
--- NOTE | 2024-04-02 15:19 | P.PN ---
Subjective Progress Note Date: 04/01/24 Principal diagnosis: Reason for follow-up is left leg cellulitis Patient is a 68-year-old female past medical history taken for hypertension hyperlipidemia reflux COPD significant history of smoking and continues to smoke along with anxiety and depression patient has been brought into the ER for evaluation of increasing swelling redness of left lower extremity has been diagnosed with a cellulitis. On today's evaluation that is 04/01/2024, the patient continues to be afebrile, the patient is on 2 L nasal cannula oxygen and breathing comfortably, the Pt denies having any chest pain or cough, the patient denies having any abdominal pain no vomiting or any diarrhea left leg swelling redness slightly decreased. Patient white count is 8.59, creatinine 0.9 Objective - Vital Signs Vital signs: Vital Signs Temp 98.4 F 04/01/24 07:00 Pulse 70 04/01/24 07:00 Resp 16 04/01/24 07:00 BP 112/59 04/01/24 07:00 Pulse Ox 93 L 04/01/24 07:00 FiO2 Intake & Output 03/31/24 04/01/24 04/01/24 18:59 06:59 18:59 Intake Total 1113 375 118 Balance 1113 375 118 Intake: Intake, IV Titration 700 375 Amount Sodium Chloride 0.9% 1, 600 375 000 ml @ 75 mls/hr IV . [id number] [facility] Rx#:[id number] ceFAZolin 3 gm In Sodium 100 Chloride 0.9% 100 ml @ 200 mls/hr IVPB Q8HR [facility] Rx#:[id number] Oral 413 118 Other: Voiding Method Toilet Toilet # Voids 2 2 1 # Bowel Movements 1 - Exam GENERAL DESCRIPTION: An elderly female lying in bed in no distress RESPIRATORY SYSTEM: Unlabored breathing , decreased breath sounds at bases HEART: S1 S2 regular rate and rhythm , ABDOMEN: Soft , no tenderness EXTREMITIES: Left leg is currently wrapped in Vik wrap no drainage - Labs CBC & Chem 7: 04/02/24 05:52 04/02/24 05:52 Labs: Abnormal Lab Results - Last 24 Hours (Table) 04/01/24 04/01/24 Range/Units 06:33 06:33 MCHC 31.3 L (32.0-37.0) g/dL Immature Gran # 0.15 H (0.00-0.04) X 10*3/uL BUN 3.8 L (9.0-27.0) mg/dL BUN/Creatinine Ratio 4.22 L (12.00-20.00) Ratio Glucose 123 H (70-110) mg/dL Calcium 7.5 L (8.7-10.3) mg/dL Microbiology - Last 24 Hours (Table) 03/29/24 17:25 Blood Culture - Preliminary Blood Assessment and Plan (1) Left leg cellulitis Current Visit: Yes Status: Acute Code(s): L03.116 - CELLULITIS OF LEFT LOWER LIMB SNOMED Code(s): 35983011190529835 (2) Athlete's foot on left Current Visit: Yes Status: Acute Code(s): B35.3 - TINEA PEDIS SNOMED Code(s): 4563413 Plan: 1patient presented to hospital with increasing swelling to the left lower extremity that has been getting worse over the last 2 months now with progressive worsening redness concerning for cellulitis likely secondary to gram-positive skin marquita and possibly streptococcal disease. 2patient did have history of COPD and possible cor pulmonale leading to these swelling in the legs as apparently patient recent recently Doppler has been negative. 3Levaquin allergy that will limit the number of antibiotics safe to use. 4we will continue patient cefazolin 3 g every 8 hours along with nystatin cream in between the toes and an Vik wrap to the leg to keep the swelling down, and echocardiogram has been ordered Dictation was produced using [employer] dictation software. please excuse any grammatical, word or spelling errors. Time with Patient: Less than 30
--- NOTE | 2024-04-02 15:20 | P.PN ---
Subjective Progress Note Date: 04/02/24 Principal diagnosis: Reason for follow-up is left leg cellulitis Patient is a 68-year-old female past medical history taken for hypertension hyperlipidemia reflux COPD significant history of smoking and continues to smoke along with anxiety and depression patient has been brought into the ER for evaluation of increasing swelling redness of left lower extremity has been diagnosed with a cellulitis. On today's evaluation that is 04/02/2024, Patient is afebrile patient is currently on 2 L current oxygen and denies having any shortness of breath, the patient denies any chest pain or cough, the patient denies any nausea vomiting did not have any abdominal pain and no diarrhea, patient denies pain to the left lower extremity overall swelling redness slightly decreased. Patient white count 7.45, creatinine 0.8 Objective - Vital Signs Vital signs: Vital Signs Temp 98.2 F 04/02/24 07:40 Pulse 86 04/02/24 08:29 Resp 18 04/02/24 08:00 BP 144/81 04/02/24 07:40 Pulse Ox 88 L 04/02/24 08:22 FiO2 Intake & Output 04/01/24 04/02/24 04/02/24 18:59 06:59 18:59 Intake Total 354 240 Output Total 1451 3 1 Balance -1097 -3 239 Intake: Oral 354 240 Output: Urine 1450 3 Stool 1 1 Other: Voiding Method Toilet # Voids 1 2 # Bowel Movements 1 - Exam GENERAL DESCRIPTION: An elderly female lying in bed in no distress RESPIRATORY SYSTEM: Unlabored breathing , decreased breath sounds at bases HEART: S1 S2 regular rate and rhythm , ABDOMEN: Soft , no tenderness EXTREMITIES: Left leg is currently wrapped in Vik wrap redness slightly decreased from the saúl - Labs CBC & Chem 7: 04/02/24 05:52 04/02/24 05:52 Labs: Abnormal Lab Results - Last 24 Hours (Table) 04/02/24 04/02/24 Range/Units 05:52 05:52 Immature Gran # 0.26 H (0.00-0.04) X 10*3/uL Potassium 3.3 L (3.5-5.5) mmol/L Anion Gap 12.60 H (4.00-12.00) mmol/L BUN 5.0 L (9.0-27.0) mg/dL BUN/Creatinine Ratio 6.25 L (12.00-20.00) Ratio Calcium 8.3 L (8.7-10.3) mg/dL Microbiology - Last 24 Hours (Table) 03/29/24 17:25 Blood Culture - Preliminary Blood Assessment and Plan (1) Left leg cellulitis Current Visit: Yes Status: Acute Code(s): L03.116 - CELLULITIS OF LEFT LOWER LIMB SNOMED Code(s): 20170916953384707 (2) Athlete's foot on left Current Visit: Yes Status: Acute Code(s): B35.3 - TINEA PEDIS SNOMED Code(s): 7392726 Plan: 1patient presented to hospital with increasing swelling to the left lower extremity that has been getting worse over the last 2 months now with prog ressive worsening redness concerning for cellulitis likely secondary to gram- positive skin marquita and possibly streptococcal disease. 2patient did have history of COPD and possible cor pulmonale leading to these swelling in the legs as apparently patient recent recently Doppler has been negative. 3Levaquin allergy that will limit the number of antibiotics safe to use. 4patient is currently being treated with cefazolin 3 g every 8 hours along with nystatin cream in between the toes and an Vik wrap to the leg to keep the swelling down,, echocardiogram is currently pending Question concern answered Dictation was produced using [employer] dictation software. please excuse any grammatical, word or spelling errors. Time with Patient: Less than 30
--- NOTE | 2024-04-02 15:55 | P.PN ---
Subjective Progress Note Date: 04/02/24 Interval History: 68-year-old female with past medical history significant for hypertension, hyperlipidemia, GERD who presented to ER with a complaint of left lower extremity pain, swelling and redness. Patient stated that she has chronic swelling in the lower lower extremities, patient started to note status worsening redness, swelling, pain and tenderness in the left lower extremity about 1 week ago when patient noticed a blister with weeping. Patient also reported fever and chills at home. Patient also reported altered mental status for 2 days per daughter. In the ED patient was afebrile, heart rate 90, respiratory rate 18, blood pressure 117/73, saturating 94% on 2 L. Labs: WBCs 11.2, now down to 8.55, hemoglobin 13.0, platelets 171. BMP unremarkable. Mildly elevated ALT and AST. Ultrasound venousnormal. 03/31--patient was seen and examined today. Lower extremity swelling with tenderness and warmth is improving. Infectious disease following, patient antibiotic switched to cefazolin. Labs unremarkable, normal WBC count. 04/01--patient was seen and examined today. Lower extremity tenderness warmth is improving. Infectious disease following, currently on cefazolin. Normal WBC s hemoglobin and platelets. Normal sodium, potassium, BUN/creatinine. 04/02--patient was seen and examined today. Lower extremity swelling tenderness and warmth is improving. Remains on cefazolin. ID following, anticipate final plans tomorrow. Currently on 2 L oxygen, saturating 88%, anticipate rest walk prior to discharge. CBC unremarkable. Echocardiogram pending. Given 1 more dose of 20 mg IV Lasix today. Assessment and plan: Sepsis: Left lower extremity cellulitis: Edema: Presented with worsening lower extremity swelling, edema, redness, pain and tenderness Blood cultures IV fluids Vancomycin and Rocephin--- switched to cefazolin per infectious disease. Infectious disease consulted Vik se's Echocardiogram Lasix 1 dose. COPD: Patient has history of smoking, using home inhalers Not on home oxygen Requiring 2 L oxygen Resume home inhalers albuterol, Trelegy. Monitor oxygen saturation Need rest walk prior to discharge. DVT prophylaxis Subcutaneous Lovenox Monitor vital signs and labs Continue telemetry monitoring Labs and medication were reviewed. Continue same treatment. Resume home medication. Further recommendations as per clinical course of the patient PHYSICAL EXAMINATION: GENERAL: The patient is A&O x3, NAD HEENT: EOMI, Sclerae anicteric, Moist Mucous membranes Neck: Supple, Non tender, No JVD PULMONARY: Equal breath souds B/L, No wheezing, No crackles. CARDIOVASCULAR: S1, S2 present. No murmurs, rubs, or gallops. ABDOMEN: Soft, nontender, nondistended, normoactive bowel sounds. No guarding or rebound tenderness. MUSCULOSKELETAL: Bilateral lower extremity edema, worse on the left lower extremity. Left lower extremity, tenderness, edema, warmth. EXTREMITIES: No cyanosis, clubbing, or pedal edema. NEUROLOGICAL: CN 2-12 grossly intact. No FND REVIEW OF SYSTEMS: CONSTITUTIONAL: No fever or chills. CARDIOVASCULAR: No chest pain, palpitations or syncope. PULMONARY: No shortness of breath, no cough, sore throat. GASTROINTESTINAL: No nausea, vomiting, diarrhea, abdominal pain. : No Dysuria, urgency, frequency. Extremities: No edema. NEUROLOGICAL: No headaches, no weakness, or numbness Dictation was produced using Slated dictation software. please excuse any grammatical, word or spelling errors. Objective - Vital Signs Vital signs: Vital Signs Temp 98.2 F 04/02/24 07:40 Pulse 86 04/02/24 08:29 Resp 18 04/02/24 08:00 BP 144/81 04/02/24 07:40 Pulse Ox 88 L 04/02/24 08:22 FiO2 Intake & Output 04/01/24 04/02/24 04/02/24 18:59 06:59 18:59 Intake Total 354 240 Output Total 1451 3 1 Balance -1097 -3 239 Intake: Oral 354 240 Output: Urine 1450 3 Stool 1 1 Other: Voiding Method Toilet # Voids 1 2 5 # Bowel Movements 1 1 - Labs CBC & Chem 7: 04/02/24 05:52 04/02/24 05:52 Labs: Abnormal Lab Results - Last 24 Hours (Table) 04/02/24 04/02/24 Range/Units 05:52 05:52 Immature Gran # 0.26 H (0.00-0.04) X 10*3/uL Potassium 3.3 L (3.5-5.5) mmol/L Anion Gap 12.60 H (4.00-12.00) mmol/L BUN 5.0 L (9.0-27.0) mg/dL BUN/Creatinine Ratio 6.25 L (12.00-20.00) Ratio Calcium 8.3 L (8.7-10.3) mg/dL Microbiology - Last 24 Hours (Table) 03/29/24 17:25 Blood Culture - Preliminary Blood
[2024-04-03 08:33] VITALS: RESP 18
--- NOTE | 2024-04-03 10:18 | CA ---
Transthoracic Echo Report Name: Yin Meyers Age: 68 Gender: F : 1955 Exam Date: 04/02/2024 08:36 Exam Location: [facility] Echo Ht (in): 65 Wt (lb): 230 Ordering Physician: Tiffany Shell MD Attending/Referring Phys: Casting Agent Majo Christianson RDCS Procedure CPT: Indications: Leg swelling, questionable cor pulmonale Cardiac Hx: Technical Quality: Fair Contrast 1: Total Dose (mL): Contrast 2: Total Dose (mL): MEASUREMENTS (Male / Female) Normal Values 2D ECHO LV Diastolic Diameter PLAX 3.9 cm 4.2 - 5.9 / 3.9 - 5.3 cm LV Systolic Diameter PLAX 2.8 cm IVS Diastolic Thickness 1.8 cm 0.6 - 1.0 / 0.6 - 0.9 cm LVPW Diastolic Thickness 1.4 cm 0.6 - 1.0 / 0.6 - 0.9 cm LV Relative Wall Thickness 0.8 LA Volume 53.1 cm??? 18 - 58 / 22 - 52 cm??? LA Volume Index 23.8 cm???/m??? 16 - 28 cm???/m??? M-MODE Aortic Root Diameter MM 2.8 cm LA Systolic Diameter MM 3.5 cm LA Ao Ratio MM 1.3 AV Cusp Separation MM 2.0 cm DOPPLER AV Peak Velocity 152.1 cm/s AV Peak Gradient 9.3 mmHg AV Mean Velocity 115.9 cm/s AV Mean Gradient 5.8 mmHg AV Velocity Time Integral 32.2 cm LVOT Peak Velocity 130.9 cm/s LVOT Peak Gradient 6.8 mmHg LVOT Velocity Time Integral 25.3 cm MV Area PHT 3.6 cm??? Mitral E Point Velocity 74.0 cm/s Mitral A Point Velocity 100.9 cm/s Mitral E to A Ratio 0.7 MV Deceleration Time 213.3 ms MV E' Velocity 7.1 cm/s Mitral E to MV E' Ratio 10.5 TR Peak Velocity 318.7 cm/s TR Peak Gradient 40.6 mmHg Right Ventricular Systolic Press 43.5 mmHg FINDINGS Left Ventricle Moderately increased left ventricular wall thickness. Left ventricular cavity size normal. Normal left ventricular systolic function with no obvious regional wall motion abnormalities. Left ventricular ejection fraction is estimated at 55-60 %. Grade 1 diastolic dysfunction. Right Ventricle Normal right ventricular size and function. Mild pulmonary hypertension. Right Atrium Normal right atrial size. Left Atrium Mildly increased left atrial volume. Mitral Valve Structurally normal mitral valve. Mitral valve thickened. Mild mitral annular calcification. Mild mitral regurgitation. Aortic Valve Trileaflet aortic valve. No aortic valve stenosis or regurgitation. Tricuspid Valve Structurally normal tricuspid valve. Mild tricuspid regurgitation. Pulmonic Valve Structurally normal pulmonic valve. Pericardium No pericardial effusion. Echo free space anterior to the right ventricle likely represents a fat pad. Aorta Normal size aortic root and proximal ascending aorta. CONCLUSIONS Normal LV size and systolic function with mild to moderate concentric LVH. Mitral annular calcification with mild mitral regurgitation. Aortic valve sclerosis no stenosis. Mild tricuspid regurgitation and mild pulmonary hypertension. No pericardial effusion but possible fat pad Previewed by: Dr. Jeremy Jordan MD (Electronically Signed) Final Date: 03 April 2024 10:17
[2024-04-03 12:11] LABS: African American GFR (CKD) 82 (>60 ml/min/1.73 sqM); Anion Gap 7 mmol/L; Blood Urea Nitrogen 6 mg/dL (7-17); Calcium 8.9 mg/dL (8.4-10.2); Carbon Dioxide 34 mmol/L (22-30); Chloride 101 mmol/L (98-107); Glucose 99 mg/dL (74-99); Magnesium 1.7 mg/dL (1.6-2.3); Non-African American GFR(CKD) 71 (>60 ml/min/1.73 sqM); Potassium 3.3 mmol/L (3.5-5.1); Sodium 142 mmol/L (137-145)
[2024-04-03] MEDS: POTASSIUM CHLORIDE ER 20 MEQ TAB.ER PO STA (14:54)
[2024-04-03] MEDS: MAGNESIUM OXIDE 400 MG TAB PO STA (14:54)
--- NOTE | 2024-04-03 14:57 | XR ---
EXAMINATION TYPE: XR chest 2V DATE OF EXAM: 04/03/2024 2:45 PM CLINICAL INDICATION: Female, 68 years old with history of hypoxia; PHH COMPARISON: Chest radiographs from 01/03/2017 TECHNIQUE: XR chest 2V Frontal view of the chest. FINDINGS: Lungs/Pleura: There is no evidence of pleural effusion, focal consolidation, or pneumothorax. Pulmonary vascularity: Pulmonary vascular congestion. Heart/mediastinum: Cardiomediastinal silhouette is enlarged. Musculoskeletal: No acute osseous pathology. Other findings: None Lines/Tubes: IMPRESSION: Cardiomegaly and mild pulmonary vascular congestion. Correlate with BNP for congestive heart failure.
[2024-04-03] MEDS: FUROSEMIDE 10 MG/ML 4 ML VIAL IV SCH (15:42)
--- NOTE | 2024-04-04 07:45 | P.PN ---
Subjective Progress Note Date: 04/03/24 Principal diagnosis: Reason for follow-up is left leg cellulitis Patient is a 68-year-old female past medical history taken for hypertension hyperlipidemia reflux COPD significant history of smoking and continues to smoke along with anxiety and depression patient has been brought into the ER for evaluation of increasing swelling redness of left lower extremity has been diagnosed with a cellulitis. On today's evaluation that is 04/03/2024, patient has been afebrile, patient is breathing comfortably and is currently on room air, patient denies having any significant cough no chest pain shortness of breath, patient denies nausea vomiting or diarrhea and no abdominal pain, left lower extremity swelling redness has decreased. Patient did have a creatinine 0.85 blood culture has been negative Objective - Vital Signs Vital signs: Vital Signs Temp 98 F 04/03/24 07:30 Pulse 76 04/03/24 12:14 Resp 18 04/03/24 08:00 BP 127/74 04/03/24 07:30 Pulse Ox 82 L 04/03/24 11:41 FiO2 Intake & Output 04/02/24 04/03/24 04/03/24 18:59 06:59 18:59 Intake Total 462 118 Output Total 1 1 Balance 461 -1 118 Intake: Oral 462 118 Output: Stool 1 1 Other: Voiding Method Toilet Toilet Toilet # Voids 4 2 # Bowel Movements 2 - Exam GENERAL DESCRIPTION: An elderly female lying in bed in no distress RESPIRATORY SYSTEM: Unlabored breathing , decreased breath sounds at bases HEART: S1 S2 regular rate and rhythm , ABDOMEN: Soft , no tenderness EXTREMITIES: Left leg swelling redness has decreased no drainage - Labs CBC & Chem 7: 04/02/24 05:52 04/03/24 11:19 Labs: Abnormal Lab Results - Last 24 Hours (Table) 04/03/24 Range/Units 11:19 Potassium 3.3 L (3.5-5.1) mmol/L Carbon Dioxide 34 H (22-30) mmol/L BUN 6 L (7-17) mg/dL Assessment and Plan (1) Left leg cellulitis Current Visit: Yes Status: Acute Code(s): L03.116 - CELLULITIS OF LEFT LOWER LIMB SNOMED Code(s): 83258990706310110 (2) Athlete's foot on left Current Visit: Yes Status: Acute Code(s): B35.3 - TINEA PEDIS SNOMED Code(s): 1373236 Plan: 1patient presented to hospital with increasing swelling to the left lower extremity that has been getting worse over the last 2 months now with progressive worsening redness concerning for cellulitis likely secondary to gram-positive skin marquita and possibly streptococcal disease. 2patient did have history of COPD and possible cor pulmonale leading to these swelling in the legs as apparently patient recent recently Doppler has been negative. 3Levaquin allergy that will limit the number of antibiotics safe to use. 4patient did have some clinical improvement in the cefazolin plan is to finish therapy with oral Keflex prescription sent to the pharmacy and close outpatient follow-up Dictation was produced using Tidal dictation software. please excuse any grammatical, word or spelling errors. Time with Patient: Less than 30
[2024-04-04] MEDS ORDERED: Magnesium Replacement Protocol 1 EACH MISC MISCELLANE PRN (08:30)
[2024-04-04] MEDS ORDERED: Potassium Replacement Protocol 1 EACH MISC MISCELLANE PRN (08:30)
--- NOTE | 2024-04-04 08:30 | P.PN ---
Subjective Progress Note Date: 04/03/24 Interval History: 68-year-old female with past medical history significant for hypertension, hyperlipidemia, GERD who presented to ER with a complaint of left lower extremity pain, swelling and redness. Patient stated that she has chronic swelling in the lower lower extremities, patient started to note status worsening redness, swelling, pain and tenderness in the left lower extremity about 1 week ago when patient noticed a blister with weeping. Patient also reported fever and chills at home. Patient also reported altered mental status for 2 days per daughter. In the ED patient was afebrile, heart rate 90, respiratory rate 18, blood pressure 117/73, saturating 94% on 2 L. Labs: WBCs 11.2, now down to 8.55, hemoglobin 13.0, platelets 171. BMP unremarkable. Mildly elevated ALT and AST. Ultrasound venousnormal. 03/31--patient was seen and examined today. Lower extremity swelling with tenderness and warmth is improving. Infectious disease following, patient antibiotic switched to cefazolin. Labs unremarkable, normal WBC count. 04/01--patient was seen and examined today. Lower extremity tenderness warmth is improving. Infectious disease following, currently on cefazolin. Normal WBC s hemoglobin and platelets. Normal sodium, potassium, BUN/creatinine. 04/02--patient was seen and examined today. Lower extremity swelling tenderness and warmth is improving. Remains on cefazolin. ID following, anticipate final plans tomorrow. Currently on 2 L oxygen, saturating 88%, anticipate rest walk prior to discharge. CBC unremarkable. Echocardiogram pending. Given 1 more dose of 20 mg IV Lasix today. 04/03/2024 Patient is evaluated today in follow-up left lower extremity cellulitis has significantly improved as well as the edema. She continues on IV cefazolin and will recommend a course of oral Keflex on discharge as per infectious disease. Patient is hoping to go home today however she did fail her home oxygen test and drop down to 82% on room air with exercise. We will continue this patient on IV Lasix for 1 more day and hopefully improve her oxygen saturations and not discharge home with oxygen. X-ray repeated in the afternoon does show pulmonary vascular congestion and her echocardiogram reveals a ejection fraction of 55 to 60% with a grade 1 diastolic dysfunction with mild MR and mild TR. There is also mild pulmonary hypertension. Review of Systems Constitutional: Denied any fatigue denied any fever. Cardio vascular: denied any chest pain, palpitations Gastrointestinal: denied any nausea, vomiting, diarrhea Pulmonary: Reports shortness of breath cough Neurologic denied any new focal deficits All inpatient medications were reviewed and appropriate changes in these medications as dictated in the interval history and assessment and plan. PHYSICAL EXAMINATION: GENERAL: The patient is alert and oriented x3, not in any acute distress. Well developed, well nourished. HEENT: Pupils are round and equally reacting to light. EOMI. No scleral icterus. No conjunctival pallor. Normocephalic, atraumatic. No pharyngeal erythema. No thyromegaly. CARDIOVASCULAR: S1 and S2 present. No murmurs, rubs, or gallops. PULMONARY: Chest is clear to auscultation, no wheezing or crackles. Diminished ABDOMEN: Soft, nontender, nondistended, normoactive bowel sounds. No palpable organomegaly. MUSCULOSKELETAL: No joint swelling or deformity. EXTREMITIES: No cyanosis, clubbing, or pedal edema. NEUROLOGICAL: Gross neurological examination did not reveal any focal deficits. SKIN: No rashes. LLE erythema and +1 pitting edema. Assessment and plan: Left lower extremity cellulitis and sepsis Lower extremity edema Acute hypoxemic respiratory failure secondary to CHF Acute diastolic CHF with preservered EF, mild pulmonary hypertension Hx of COPD with no acute exacerbation GERD Hypertension HX Dyslipidemia HX Anxiety/Depression Chronic nicotine use GI prophylaxis DVT prophylaxis Full Code Plan Continue IV cefazolin ID following and recommend DC home on oral keflex Continue JOHN wrap to lower extremity for the edema Chest xray showing CHF Continue IV lasix overnight BMP in the AM Repeat home oxygen test tomorrow D/C home in the next 24 hours The impression and plan of care has been dictated by Echo Levine, Nurse Practitioner as directed. Dr. Jenna MD I have performed a history and physical examination and medical decision making of this patient, discussed the same with the dictator, and agree with the dictators assessment and plan as written, documented as a scribe. Based on total visit time, I have performed more than 50% of this visit. Objective - Vital Signs Vital signs: Vital Signs Temp 98 F 04/03/24 07:30 Pulse 76 04/03/24 12:14 Resp 18 04/03/24 08:00 BP 127/74 04/03/24 07:30 Pulse Ox 82 L 04/03/24 11:41 FiO2 Intake & Output 04/02/24 04/03/24 04/03/24 18:59 06:59 18:59 Intake Total 462 118 Output Total 1 1 Balance 461 -1 118 Intake: Oral 462 118 Output: Stool 1 1 Other: Voiding Method Toilet Toilet Toilet # Voids 4 2 # Bowel Movements 2 - Labs CBC & Chem 7: 04/02/24 05:52 04/03/24 11:19 Labs: Abnormal Lab Results - Last 24 Hours (Table) 04/03/24 Range/Units 11:19 Potassium 3.3 L (3.5-5.1) mmol/L Carbon Dioxide 34 H (22-30) mmol/L BUN 6 L (7-17) mg/dL Assessment and Plan Time with Patient: Less than 30
[2024-04-04] MEDS: MAGNESIUM SULFATE-D5W PMX 1 GM in DEXTROSE/WATER 1 100ML.BAG IVPB ONE (09:20)
[2024-04-04] MEDS: POTASSIUM CHLORIDE ER 20 MEQ TAB.ER PO SCH (09:22)
[2024-04-04 15:26] VITALS: BP 133/85; PULSE 87; TEMP 98.7
--- NOTE | 2024-04-04 21:06 | P.PN ---
Subjective Progress Note Date: 04/04/24 Principal diagnosis: Reason for follow-up is left leg cellulitis Patient is a 68-year-old female past medical history taken for hypertension hyperlipidemia reflux COPD significant history of smoking and continues to smoke along with anxiety and depression patient has been brought into the ER for evaluation of increasing swelling redness of left lower extremity has been diagnosed with a cellulitis. On today's evaluation that is 04/04/2024, Patient is afebrile this morning patient denies having any chest pain shortness of breath or cough, the patient is breathing comfortably and currently on room air, patient denies any abdominal pain no diarrhea no nausea no vomiting, the left lower extremity swelling redness has decreased no new symptoms. No new labs has been obtained today blood culture has been negative Objective - Vital Signs Vital signs: Vital Signs Temp 98.4 F 04/04/24 07:25 Pulse 78 04/04/24 08:06 Resp 18 04/04/24 08:00 BP 144/91 04/04/24 07:25 Pulse Ox 96 04/04/24 07:55 FiO2 Intake & Output 04/03/24 04/04/24 04/04/24 18:59 06:59 18:59 Intake Total 722 235 Balance 722 235 Intake: Oral 722 235 Other: Voiding Method Toilet Toilet # Voids 3 1 # Bowel Movements 1 - Exam GENERAL DESCRIPTION: An elderly female lying in bed in no distress RESPIRATORY SYSTEM: Unlabored breathing , decreased breath sounds at bases HEART: S1 S2 regular rate and rhythm , ABDOMEN: Soft , no tenderness EXTREMITIES: Left leg swelling redness has decreased no drainage - Labs CBC & Chem 7: 04/02/24 05:52 04/03/24 11:19 Labs: Microbiology - Last 24 Hours (Table) 03/29/24 17:25 Blood Culture - Final Blood Assessment and Plan (1) Left leg cellulitis Status: Acute Code(s): L03.116 - CELLULITIS OF LEFT LOWER LIMB SNOMED Code(s): 89869888494464329 (2) Athlete's foot on left Status: Acute Code(s): B35.3 - TINEA PEDIS SNOMED Code(s): 7343497 Plan: 1patient presented to hospital with increasing swelling to the left lower extremity that has been getting worse over the last 2 months now with progressive worsening redness concerning for cellulitis likely secondary to gram-positive skin marquita and possibly streptococcal disease. 2patient did have history of COPD and possible cor pulmonale leading to these swelling in the legs as apparently patient recent recently Doppler has been negative. 3patient has shown clinical improvement as for his left leg cellulitis and will finish therapy with oral Keflex x 10 days on discharge and close outpatient follow-up Dictation was produced using [employer] dictation software. please excuse any grammatical, word or spelling errors. Time with Patient: Less than 30
--- NOTE | 2024-04-08 22:44 | P.DS ---
Providers Date of admission: 04/02/24 10:54 Attending physician: Chrissy Farias Consults: 03/30/24 11:03 Consult Physician Routine Consulting Provider: Tiffany Shell Consult Reason/Comments: LLE cellulitis Do you want consulting provider notified?: Yes Primary care physician: Karan Brooks [facility] Course: Final Diagnosis Left lower extremity cellulitis and sepsis Lower extremity edema Acute hypoxemic respiratory failure secondary to CHF Acute diastolic CHF with preservered EF, mild pulmonary hypertension Hx of COPD with no acute exacerbation GERD Hypertension HX Dyslipidemia HX Anxiety/Depression Chronic nicotine use Discharge Disposition Patient is stable for discharge. Patient will continue with oral lasix on discharged. Patient has been sent home on oxygen. Does have history of COPD. Recommending to see PCP Dr Brooks in 1 to 2 days. Consider pulmonary follow up. Hospital Course Interval History: 68-year-old female with past medical history significant for hypertension, hyperlipidemia, GERD who presented to ER with a complaint of left lower extremity pain, swelling and redness. Patient stated that she has chronic swelling in the lower lower extremities, patient started to note status worsening redness, swelling, pain and tenderness in the left lower extremity about 1 week ago when patient noticed a blister with weeping. Patient also reported fever and chills at home. Patient also reported altered mental status for 2 days per daughter. In the ED patient was afebrile, heart rate 90, respiratory rate 18, blood pressure 117/73, saturating 94% on 2 L. Labs: WBCs 11.2, now down to 8.55, hemoglobin 13.0, platelets 171. BMP unremarkable. Mildly elevated ALT and AST. Ultrasound venousnormal. Patient was started on IV cefazolin for the lower extremity cellulitis and ID consultation. Patient was given does of IV lasix for the edema of the lower lower extremity. Clinically the cellulitis is improving. Patient is hoping to discharge however she did fail her home oxygen test and drop down to 82% on room air with exercise. Patient was continued on IV Lasix for 1 more day and hopefully improve her oxygen saturations and not discharge home with oxygen. X- ray repeated in the afternoon does show pulmonary vascular congestion and her echocardiogram reveals a ejection fraction of 55 to 60% with a grade 1 diastolic dysfunction with mild MR and mild TR. There is also mild pulmonary hypertension. Patients shortness of breath improved with lasix. Sodium level 142, BUN 6, creatinine 0.85. 80-82% on room air with activity. Up to 92% on 2-3 L of oxygen. Please see medication reconciliation for a list of current medications. Thank you for allowing us to participate in the care of this patient. The impression and plan of care has been dictated by Echo Levine Nurse Practitioner as directed. Dr. Jenna MD I have performed a history and physical examination and medical decision making of this patient, discussed the same with the dictator, and agree with the dictators assessment and plan as written, documented as a scribe. Based on total visit time, I have performed more than 50% of this visit. Patient Condition at Discharge: Fair Plan - Discharge Summary Discharge Rx Participant: No New Discharge Prescriptions: New Cephalexin [Keflex] 500 mg PO Q6HR 10 Days #40 cap Potassium Chloride ER [K-Dur 10] 10 meq PO DAILY #10 tab Furosemide [Lasix] 20 mg PO DAILY #10 tab Nystatin 100,000Unit/gm Cream [Mycostatin Cream] 1 applic TOPICAL BID #1 each Continue traZODone HCL 150 mg PO HS Omeprazole 20 mg PO DAILY Desvenlafaxine Succinate [Pristiq] 100 mg PO DAILY Simvastatin [Zocor] 20 mg PO HS Alendronate Sodium [Fosamax] 70 mg PO FR rOPINIRole HCL [Requip] 2 mg PO HS Levothyroxine Sodium [Synthroid] 25 mcg PO DAILY Gabapentin [Neurontin] 800 mg PO TID Cyclobenzaprine [Flexeril] 10 mg PO BID PRN PRN Reason: Muscle Spasm QUEtiapine FUMARATE [SEROquel] 300 mg PO HS Melatonin 3 mg PO HS Cholecalciferol (Vitamin D3) [Vitamin D3 (50 Mcg = 2000 Iu)] 50 mcg PO DAILY Multivit-Min/Iron/Folic/Lutein [Centrum Silver Women Tablet] 1 tab PO DAILY Albuterol Sulfate [Albuterol Sulfate Hfa] 2 puff PO RT-Q4H PRN PRN Reason: Shortness Of Breath ARIPiprazole [Abilify] 15 mg PO DAILY Discharge Medication List Omeprazole 20 mg PO DAILY 04/24/19 [History] traZODone HCL 150 mg PO HS 04/24/19 [History] Desvenlafaxine Succinate [Pristiq] 100 mg PO DAILY 06/19/23 [History] ARIPiprazole [Abilify] 15 mg PO DAILY 03/29/24 [History] Albuterol Sulfate [Albuterol Sulfate Hfa] 2 puff PO RT-Q4H PRN 03/29/24 [History] Alendronate Sodium [Fosamax] 70 mg PO FR 03/29/24 [History] Cholecalciferol (Vitamin D3) [Vitamin D3 (50 Mcg = 2000 Iu)] 50 mcg PO DAILY 03/29/24 [History] Cyclobenzaprine [Flexeril] 10 mg PO BID PRN 03/29/24 [History] Gabapentin [Neurontin] 800 mg PO TID 03/29/24 [History] Levothyroxine Sodium [Synthroid] 25 mcg PO DAILY 03/29/24 [History] Melatonin 3 mg PO HS 03/29/24 [History] Multivit-Min/Iron/Folic/Lutein [Centrum Silver Women Tablet] 1 tab PO DAILY 03/29/24 [History] QUEtiapine FUMARATE [SEROquel] 300 mg PO HS 03/29/24 [History] Simvastatin [Zocor] 20 mg PO HS 03/29/24 [History] rOPINIRole HCL [Requip] 2 mg PO HS 03/29/24 [History] Cephalexin [Keflex] 500 mg PO Q6HR 10 Days #40 cap 04/03/24 [Rx] Nystatin 100,000Unit/gm Cream [Mycostatin Cream] 1 applic TOPICAL BID #1 each 04/03/24 [Rx] Furosemide [Lasix] 20 mg PO DAILY #10 tab 04/04/24 [Rx] Potassium Chloride ER [K-Dur 10] 10 meq PO DAILY #10 tab 04/04/24 [Rx] Follow up Appointment(s)/Referral(s): [facility] [NON-STAFF] - 1 Week Karan Brooks DO [Primary Care Provider] - 1-2 days Tiffany Shell MD [STAFF PHYSICIAN] - 1 Week Ambulatory/Diagnostic Orders: Basic Metabolic Panel [LAB.AMB] Time Frame: 4 Days, Location: None Selected Patient Instructions/Handouts: Heart Failure (DC) Activity/Diet/Wound Care/Special Instructions: Recommend to weigh yourself daily and keep log for follow up with PCP. Continue oral lasix daily for the next 10 days. Repeat blood work in 4 days to monitor your electrolytes Follow up with your PCP and cardiology. Can discuss with Dr. Brooks about seeing a lining ironer. Discharge Disposition: HOME SELF-CARE
== END 2024-04-04 17:07 | disposition home or self-care (01) | DRG 871 ==
LOC: EC 15:35 → 6NMEDSUR 19:11 → OBSVTOIN 04-02 10:54
PROVIDERS: ADMIT Internal Medicine; ATTEND Internal Medicine
PROC: 3E0F7SF Introduction of Other Gas into Respiratory Tract, Via Natural or Artificial Opening (ICD-10-PCS; principal; 2024-04-02)
DX: A41.9 Sepsis, unspecified organism (principal); I50.31 Acute diastolic (congestive) heart failure; J96.01 Acute respiratory failure with hypoxia; L03.116 Cellulitis of left lower limb; B35.3 Tinea pedis; E78.5 Hyperlipidemia, unspecified; F17.210 Nicotine dependence, cigarettes, uncomplicated; F32.A Depression, unspecified; F41.9 Anxiety disorder, unspecified; G25.81 Restless legs syndrome; I11.0 Hypertensive heart disease with heart failure; I27.20 Pulmonary hypertension, unspecified; K21.9 Gastro-esophageal reflux disease without esophagitis; K58.9 Irritable bowel syndrome, unspecified; H91.91 Unspecified hearing loss, right ear; J44.9 Chronic obstructive pulmonary disease, unspecified; Z79.83 Long term (current) use of bisphosphonates; Z79.890 Hormone replacement therapy; Z79.899 Other long term (current) drug therapy; Z88.1 Allergy status to other antibiotic agents; Z98.42 Cataract extraction status, left eye; Z98.41 Cataract extraction status, right eye
CPT/HCPCS: 71046; 80048; 80053; 83735; 83880; 85025; 93306; 94640; 94760; 96360; 99285

== ENCOUNTER → 2024-05-28 | Outpatient (CLI) | payer MEDICARE, OTHER ==
[2024-05-28 15:29] LABS: HCT 47.1 % (37.2-46.3); HGB 15.5 g/dL (12.0-15.0); MCH 30.6 pg (27.0-32.0); MCHC 32.9 g/dL (32.0-37.0); MCV 93.1 FL (80.0-97.0); Mean Platelet Volume 10.6 FL (9.5-12.2); NRBC Per 100 WBC 0 X 10*3/uL (0.00-0.01); Platelet Count 219 X 10*3/uL (140-440); RBC 5.06 X 10*6/uL (4.10-5.20); RDW 13.2 % (11.5-14.5); WBC 7.56 X 10*3/uL (4.50-10.00)
[2024-05-28 16:27] LABS: NT-Pro-B-Type Natriuretic Pept 41 pg/mL (0-125)
[2024-05-28 16:34] LABS: ALT 48 U/L (8-44); AST 57 U/L (13-35); Albumin 4.4 g/dL (3.8-4.9); Albumin/Globulin Ratio 1.52 Ratio (1.60-3.17); Alkaline Phosphatase 80 U/L (41-126); BUN/Creat Ratio 10.73 Ratio (12.00-20.00); Blood Urea Nitrogen 11.8 mg/dL (9.0-27.0); Calcium 9.3 mg/dL (8.7-10.3); Carbon Dioxide 28.3 mmol/L (21.6-31.8); Chloride 98 mmol/L (96-109); Chol/HDL Ratio 3.49 Ratio; Globulin 2.9 g/dL (1.6-3.3); Glucose 124 mg/dL (70-110); LDL Cholesterol,Calculated 81.3 mg/dL (0.0-131.0); Potassium 4.2 mmol/L (3.5-5.5); Sodium 139 mmol/L (135-145); Total Bilirubin 0.8 mg/dL (0.3-1.2); Total Protein 7.3 g/dL (6.2-8.2)
== END | disposition home or self-care (01) ==
LOC: LABWHC1 10:31
PROVIDERS: ATTEND Student in an Organized Health Care Education/Training Program
CPT/HCPCS: 36415; 80053; 80061; 83036; 83880; 84443; 85027

== ENCOUNTER → 2024-08-28 | Outpatient (CLI) | payer MEDICARE, OTHER ==
--- NOTE | 2024-08-28 10:55 | MM ---
Reason for Exam: Clinical finding. Last mammogram was performed 2 year(s) and 2 month(s) ago. Patient History: Menarche at age 14. First Full-Term at age 26. Postmenopausal. 11/27/2015, Benign Core Biopsy on the left side. 02/12/2013, Benign Core Biopsy on the right side. Maternal aunt had breast cancer. Risk Values: Ileana 5 year model risk: 2.8%. NCI Lifetime model risk: 9.5%. Tissue Density: There are scattered areas of fibroglandular density. Findings: Analyzed By CAD. Bilateral breast biopsy clip. There is no suspicious group of microcalcifications or new suspicious mass. Benign-appearing calcifications bilaterally. No new suspicious masses, calcifications or distortions. Overall Assessment: Benign, BI-RAD 2 Management: Screening Mammogram of both breasts in 1 year. Results were given to the patient verbally at the time of exam. Patient should continue monthly self-breast exams. A clinical breast exam by your physician is recommended on an annual basis. This exam should not preclude additional follow-up of suspicious palpable abnormalities. Note on Ileana scores and lifetime risk: 1. A Ileana score greater than 3% is considered moderate risk. If this is the case, consider specialist referral to assess eligibility for a risk reducing agent. 2. If overall lifetime risk for the development of breast cancer is 20% or higher, the patient may qualify for future screening with alternating mammogram and breast MRI. [facility], , 08/28/2024 10:44 AM. Electronically signed and approved by: Pedro Borjas DO
== END | disposition home or self-care (01) ==
LOC: RADMAMWWP 10:18
PROVIDERS: ATTEND Family Medicine
DX: R92.323 Mammographic fibroglandular density, bilateral breasts (principal); N60.01 Solitary cyst of right breast; Z78.0 Asymptomatic menopausal state; Z80.3 Family history of malignant neoplasm of breast
CPT/HCPCS: 77066; G0279; 77062